=== PATIENT | male | born 1960 | race Caucasian/White ===

== ENCOUNTER → 2017-08-09 12:18 | Outpatient (CLI) | payer BC, SELFPAY ==
[2017-08-02 15:33] VITALS: BP 127/85; BMI 24.3
[2017-08-09 13:17] LABS: AST(SGOT) 18 U/L (15-37); Alanine Aminotransfer ALT/SGPT 33 U/L (16-61); Albumin, Serum 4.1 g/dL (3.2-5.0); Alkaline Phosphatase 115 U/L (45-117); Bilirubin, Direct 0.16 mg/dL (0.00-0.30); Cholesterol 143 mg/dL (200); Globulin 3.2 g/dL (2.2-4.2); High Density Lipoprotein 41 mg/dL; Protein, Total 7.3 g/dL (6.4-8.2); Triglycerides 159 mg/dL; Very Low Density Lipoprotein 32 mg/dL (5-40)
== END ==
PROVIDERS: Visit Provider Internal Medicine Cardiovascular Disease
DX: R06.09 Other forms of dyspnea (principal); E78.5 Hyperlipidemia, unspecified; I25.10 Atherosclerotic heart disease of native coronary artery without angina pectoris; Z95.2 Presence of prosthetic heart valve; Z79.01 Long term (current) use of anticoagulants; Z95.1 Presence of aortocoronary bypass graft; Z79.899 Other long term (current) drug therapy
CPT/HCPCS: 36415; 80061; 80076

== ENCOUNTER → 2020-09-28 06:39 | Outpatient (CLI) | payer MEDICAID, SELFPAY ==
[2020-09-14 13:10] VITALS: BMI 25.4
--- NOTE | 2020-09-28 06:41 | ECHOD_ITS ---
Version 2 Reason For Study: Bicuspid AV Procedure This was a 2D Doppler, Color Flow transthoracic echocardiogram. Exam performed in department. Left Ventricle Normal LV size. Left ventricular systolic function is normal. The estimated ejection fraction is 60 %. Stage 1 diastolic dysfunction. No regional wall motion abnormalities noted. Right Ventricle Normal RV size. Normal systolic function. Atria Normal left atrium. Normal right atrium. Mitral Valve Normal mitral valve. Tricuspid Valve Normal tricuspid valve. Aortic Valve The aortic valve is not well visualized. Peak aortic valve gradient 23 mmHg. Mean aortic valve gradient 12 mmHg. Mild aortic stenosis. Bioprosthetic aortic valve. Pulmonic Valve Normal pulmonic valve. Great Vessels Normal aortic root. The pulmonary artery is normal size. Normal inferior vena cava. Pericardium/Pleural No pericardial effusion. MMode/2D Measurements & Calculations LVIDd: 4.0 cm IVSd: 1.4 cm LVOT diam: 2.0 cm LVIDs: 2.4 cm LVPWd: 0.71 cm LVOT area: 3.1 cm2 FS: 39.2 % LA dimension: 3.1 cm LAV(MOD-bp): 37.3 ml LA A4 area: 12.6 cm2 LAV(MOD-bp) Indexed: 17.6 ml/m2 LAV(MOD-sp2): 44.9 ml LAV(MOD-sp4): 27.1 ml RA A4 area: 13.0 cm2 Time Measurements MV dec time: 0.31 sec Doppler Measurements & Calculations MV E max joselito: 70.0 cm/sec Lat Peak E' Joselito: 10.3 cm/sec Med Peak E' Joselito: 5.5 cm/sec MV A max joselito: 85.3 cm/sec E/E' lat: 6.8 E/E' med: 12.8 MV E/A: 0.82 MV V2 max: 81.1 cm/sec MV P1/2t max joselito: 74.6 cm/sec Ao V2 max: 244.0 cm/sec MV max P.6 mmHg MV P1/2t: 92.6 msec Ao max P.9 mmHg MV V2 mean: 43.1 cm/sec MV dec slope: 236.1 cm/sec2 Ao V2 mean: 157.3 cm/sec MV mean P.90 mmHg Ao mean P.6 mmHg MV V2 VTI: 24.4 cm MVA(P1/2t): 2.4 cm2 Ao V2 VTI: 52.0 cm MVA(VTI): 2.6 cm2 CHARITY(I,D): 1.2 cm2 CHARITY(V,D): 1.3 cm2 LV V1 max: 101.8 cm/sec SV(LVOT): 64.6 ml PA V2 max: 146.4 cm/sec LV V1 max P.2 mmHg LV V1 mean P.0 mmHg LV V1 mean: 63.9 cm/sec LV V1 VTI: 21.0 cm ECHO/Echo Complete Interpretation Summary Normal LV size. Left ventricular systolic function is normal. The estimated ejection fraction is 60 %. Stage 1 diastolic dysfunction. Mean aortic valve gradient 12 mmHg. Mild aortic stenosis. Bioprosthetic aortic valve. Ordering Physician: Radu Rivas Referring Physician: No PCP noted Performed By: Joseph Ortiz RCS
--- NOTE | 2020-09-28 17:32 | STRESSREP ---
Stress Test Report Exercise myocardial perfusion stress test. 60-year-old man with history of coronary artery disease and a bicuspid aortic valve. Stress protocol: Resting EKG demonstrates normal sinus rhythm with a rate of 65 bpm normal intervals are noted resting blood pressure is 120/82 mmHg. The patient exercised according to the regular Joshua protocol for a total duration of 11 minutes. Patient completed 2 minutes into stage IV of the Joshua protocol. The maximum heart rate attained 137 bpm which was 85% of max impacted heart rate the maximum workload was 13.4 metabolic equivalents. The patient maintained sinus rhythm throughout the recording. At rest there were no ST changes noted to suggest ischemia. At peak exercise upsloping ST changes only were noted which did not meet the criteria for ischemia. No clinical angina was noted. The test was terminated due to the target heart rate being achieved. The peak blood pressure was 160/68 mmHg. Myocardial perfusion protocol. 11.7 mCi of technetium 99m sestamibi was injected at rest. The patient exercised for a total duration of 11 minutes and at peak exercise 35.5 mCi of technetium 99m sestamibi was injected stress images were obtained stress and rest images were reconstructed and compared in the short axis vertical long and horizontal long axis. Gated images were also obtained. Perfusion SPECT analysis: Review of the stress images demonstrated normal uptake of tracer noted in all areas of the myocardium. The resting images similarly demonstrate normal uptake of tracer noted in all areas of the myocardium. No areas of reversibility are noted to suggest ischemia and no previous infarct is noted. Gated SPECT analysis: The gated ejection fraction is 55%. Conclusion: Normal exercise myocardial perfusion stress test at a high workload. Excellent functional aerobic capacity. No clinical angina.
== END ==
PROVIDERS: Referring Provider Internal Medicine Cardiovascular Disease; Visit Provider Internal Medicine Cardiovascular Disease
DX: I25.10 Atherosclerotic heart disease of native coronary artery without angina pectoris (principal); Z95.1 Presence of aortocoronary bypass graft; Z98.890 Other specified postprocedural states; Z95.3 Presence of xenogenic heart valve
CPT/HCPCS: 78452; 93017; 93306; A9500; A4216

== ENCOUNTER → 2020-10-07 10:04 | Outpatient (CLI) | payer MEDICAID, SELFPAY ==
[2020-09-14 13:10] VITALS: BMI 25.4
[2020-10-07 11:03] LABS: AST(SGOT) 36 U/L (15-37); Alanine Aminotransfer ALT/SGPT 69 U/L (16-61); Alkaline Phosphatase 122 U/L (45-117); Bilirubin, Direct 0.31 mg/dL (0.00-0.30); Cholesterol 127 mg/dL (200); Creatinine, Serum 1.17 mg/dL (0.70-1.30); EST Glomerular Filtration Rate 68 mL/min (>60); Est Glom Filt Rate - Afr Amer 82 mL/min (>60); Globulin 3.5 g/dL (2.2-4.2); High Density Lipoprotein 46 mg/dL; Protein, Total 7.5 g/dL (6.4-8.2); Triglycerides 106 mg/dL; Very Low Density Lipoprotein 21 mg/dL (5-40)
== END ==
PROVIDERS: Internal Medicine Cardiovascular Disease; Referring Provider Otolaryngology; Visit Provider Otolaryngology
DX: R43.9 Unspecified disturbances of smell and taste (principal); E78.5 Hyperlipidemia, unspecified
CPT/HCPCS: 80061; 80076; 82565

== ENCOUNTER → 2020-10-21 17:01 | Outpatient (CLI) | payer MEDICAID, SELFPAY ==
[2020-09-14 13:10] VITALS: BMI 25.4
--- NOTE | 2020-10-21 17:03 | MRI_ITS ---
STUDY: MRI BRAIN WITH AND WITHOUT CONTRAST REASON FOR EXAM: Male, 60 years old. LOSS OF TASTE AND SMELL x 1 year TECHNIQUE: Standardized multiplanar fat and water weighted pulse sequences were obtained. IV Yes YES was administered for the contrast portion of the examination. COMPARISON: None. FINDINGS: Normal size of the ventricles and extra-axial spaces for the patient''s age. Normal white matter tracts of the supratentorial brain. 9 mm benign nonenhancing cyst in the left temporal lobe. Normal bilateral basal ganglia. Normal thalami. There is no extra-axial fluid accumulation. Normal flow voids within the major intracranial circulation suggesting patency by spin echo criteria. Normal venous enhancement. There is no enhancing intra-axial or extra-axial abnormality. Normal sella turcica, pituitary gland, infundibular stalk, optic chiasm and hypothalamus. Normal tectal plate and pineal gland. Normal midbrain, loco and medulla. Normal cerebellum. Normal basal cisterns. Normal bilateral temporal bones. Normal bilateral internal auditory canals. No demonstrated orbital abnormality, within the constraints of a routine brain study. Normal visualized paranasal sinuses. Normal calvarium and skull base. Normal visualized soft tissue structures. Normal visualized upper cervical spine. MRI/Brain W/WO Contrast IMPRESSION: 9 mm benign nonenhancing cyst in the left temporal lobe otherwise negative MRI of the brain with and without contrast. Electronically Signed: Remy Castrejon MD at 10:24 EDT , Service support ,
--- NOTE | 2020-10-21 17:27 | RAD_ITS ---
STUDY: X-RAY - ORBITS REASON FOR EXAM: Male, 60 years old. FOREIGN BODY MRI CLEARANCE TECHNIQUE: 2 view(s) of the orbits were obtained. COMPARISON: None. FINDINGS: Normal bilateral orbits without a metallic orbital foreign body. Normal visualized facial bones. Normal paranasal sinuses. The soft tissue structures are unremarkable. Dental caps noted. RAD/Orbits for Foreign Body IMPRESSION: No demonstrated metallic orbital foreign body. The patient is cleared for an MRI examination. Electronically Signed: Raymond Woods MD at 18:14 EDT , Service support ,
== END ==
PROVIDERS: Referring Provider Otolaryngology; Visit Provider Otolaryngology
DX: R43.9 Unspecified disturbances of smell and taste (principal)
CPT/HCPCS: 70030; 70553; A9575

== ENCOUNTER → 2021-01-11 16:53 | Outpatient (CLI) | payer MEDICAID, SELFPAY ==
[2020-11-22 08:54] VITALS: BMI 26.2
--- NOTE | 2021-01-11 16:57 | CT_ITS ---
STUDY: CT PARANASAL SINUSES WITH CONTRAST REASON FOR EXAM: Male, 60 years old. Anosmia RADIATION DOSAGE (If Supplied By Facility): CTDIvol = ( 29.38 ) mGy, DLP = ( 598.88 ) mGycm TECHNIQUE: The patient was scanned in a multi-detector CT scanner. High resolution transaxial imaging was performed following the intravenous administration of IV 75mL Isovue-370. Sagittal and coronal images were reconstructed. Individualized dose optimization techniques were used for this CT. COMPARISON: None. FINDINGS: FRONTAL SINUSES: Normal development and aeration of the bilateral frontal sinuses without mucosal inflammatory disease. ETHMOIDAL SINUSES: Minimal mucosal thickening of the ethmoid sinuses. MAXILLARY SINUSES: There is evidence of a nodular mucosal thickening at the bases of both maxillary sinuses. SPHENOIDAL SINUSES: Normal aeration of the bilateral sphenoid sinuses and there is no mucosal inflammatory disease. OMU: Normal aeration of the bilateral maxillary infundibulum. Normal uncinate process, ethmoid bulla, and hiatus semilunaris. MIDDLE TURBINATES: Normal bilateral middle turbinates without a gavin bullosa or paradoxical curvature. INFERIOR TURBINATES: There is hypertrophy of the right inferior turbinate. NASAL SEPTUM: Normal midline nasal septum and there is no nasal septal mass lesions, deviation or spur. Normal anterior cranial fossa, jonathan moo and cribriform plate. Normal bilateral orbital contents. Normal nasopharynx without adenoidal pad hypertrophy, or a posterior nasopharyngeal retention cyst. There is no demonstrated enhancing soft tissue or osseous abnormality. CT/Sinus/Facial Bone WITH Contras IMPRESSION: Nodular mucosal thickening of the maxillary sinuses bilaterally. Mild degree of mucosal thickening of the ethmoid sinuses. Electronically Signed: Ramon Zambrano MD at 9:07 EDT , Service support ,
[2021-01-11 17:16] LABS: CREATININE FINGERSTICK 1.1 mg/dL (0.70-1.30); EGFR FINGERSTICK > 60.0000 mL/min (>60)
== END ==
PROVIDERS: Referring Provider Psychiatry & Neurology Neurology; Visit Provider Psychiatry & Neurology Neurology
DX: R43.0 Anosmia (principal)
CPT/HCPCS: 70487; Q9967

== ENCOUNTER → 2021-01-26 14:12 | Outpatient (CLI) | payer MEDICAID, SELFPAY ==
[2020-11-22 08:54] VITALS: BMI 26.2
[2021-01-26 14:58] LABS: Hematocrit 44.6 % (40-54); Hemoglobin 15.5 g/dL (13.0-16.5); Mean Corp Hgb Conc 34.8 g/dL (32-36); Mean Corpuscular Hgb 33.7 pg (27.0-32.0); Mean Platelet Vol. 9.4 fl (6.2-12.0); Platelet Count 157 K/mm3 (150-450); RBC Distribution Width CV 12.3 % (11.6-14.6); RBC Distribution Width SD 44.2 fl (35.1-43.9); White Blood Count 6.1 K/mm3 (4.4-11.0)
[2021-01-26 15:00] LABS: Erythrocyte Sedimentation Rate < 1 mm/hr (0-20)
[2021-01-26 15:34] LABS: Hemoglobin A1c 5.7 % (3.8-5.6)
[2021-01-26 15:55] LABS: Anion Gap 7 (5-15); BUN 15 mg/dL (7-18); CRP < 2.90 mg/L (0.0-3.0); Calcium,Total 8.9 mg/dL (8.5-10.1); Chloride 105 mmol/L (98-107); EST Glomerular Filtration Rate 81 mL/min (>60); Est Glom Filt Rate - Afr Amer 98 mL/min (>60); Glucose 96 mg/dL (74-106); Sodium Level 141 mmol/L (136-145); Thyroid Stim Hormone (TSH) 1.53 uIU/mL (0.358-3.74)
== END ==
PROVIDERS: Referring Provider Psychiatry & Neurology Neurology; Visit Provider Psychiatry & Neurology Neurology
DX: R43.0 Anosmia (principal)
CPT/HCPCS: 36415; 80048; 83036; 84443; 85027; 85652; 86140

== ENCOUNTER → 2021-03-29 16:46 | Outpatient (CLI) | payer MEDICAID, SELFPAY ==
[2021-03-29 17:49] LABS: Vitamin B12 467 pg/mL (211-911)
== END ==
PROVIDERS: Visit Provider Psychiatry & Neurology Neurology
DX: R43.0 Anosmia (principal); G62.9 Polyneuropathy, unspecified
CPT/HCPCS: 36415; 82607; 82746

== ENCOUNTER 2021-10-12 14:05 | Outpatient (CLI) | payer MEDICAID, SELFPAY ==
[2021-10-12 14:38] LABS: AST(SGOT) 32 U/L (15-37); Alanine Aminotransfer ALT/SGPT 85 U/L (16-61); Albumin, Serum 3.8 g/dL (3.2-5.0); Alkaline Phosphatase 124 U/L (45-117); Bilirubin, Direct 0.18 mg/dL (0.00-0.30); Cholesterol 163 mg/dL (200); Globulin 3.4 g/dL (2.2-4.2); High Density Lipoprotein 42 mg/dL; Protein, Total 7.2 g/dL (6.4-8.2); Triglycerides 189 mg/dL; Very Low Density Lipoprotein 38 mg/dL (5-40)
== END 2021-10-12 23:59 | disposition home or self-care (01) ==
LOC: LAB 14:06
PROVIDERS: Referring Provider Nurse Practitioner Family; Visit Provider Nurse Practitioner Family
DX: E78.00 Pure hypercholesterolemia, unspecified (principal); E78.5 Hyperlipidemia, unspecified
CPT/HCPCS: 36415; 80061; 80076

== ENCOUNTER → 2022-05-07 | Outpatient (CLI) | payer MEDICAID, SELFPAY ==
[2022-05-07 15:28] LABS: Hemoglobin 16.9 g/dL (13.0-16.5); Mean Corp Hgb Conc 35.2 g/dL (32-36); Mean Corpuscular Hgb 34.3 pg (27.0-32.0); Mean Corpuscular Volume 97.6 fL (80-94); Mean Platelet Vol. 9.6 fl (6.2-12.0); Platelet Count 147 K/mm3 (150-450); RBC Distribution Width CV 12.9 % (11.6-14.6); RBC Distribution Width SD 46.4 fl (35.1-43.9); Red Blood Count 4.92 M/mm3 (4.6-6.2); White Blood Count 6.3 K/mm3 (4.4-11.0)
[2022-05-07 15:43] LABS: ALB/GLOB Ratio 1.1 RATIO (0.9-2.4); AST(SGOT) 46 U/L (15-37); Alanine Aminotransfer ALT/SGPT 100 U/L (16-61); Albumin, Serum 3.9 g/dL (3.2-5.0); Alkaline Phosphatase 105 U/L (45-117); Anion Gap 6 (5-15); BUN 18 mg/dL (7-18); BUN/Creat Ratio 16.1 RATIO (10-20); Calcium,Total 9.4 mg/dL (8.5-10.1); Chloride 106 mmol/L (98-107); Creatinine, Serum 1.12 mg/dL (0.70-1.30); EST Glomerular Filtration Rate 71 mL/min (>60); Est Glom Filt Rate - Afr Amer 86 mL/min (>60); Globulin 3.4 g/dL (2.2-4.2); Glucose 90 mg/dL (74-106); Potassium 3.4 mmol/L (3.5-5.1); Protein, Total 7.3 g/dL (6.4-8.2); Sodium Level 140 mmol/L (136-145)
== END | disposition home or self-care (01) ==
PROVIDERS: Referring Provider Physician Assistant; Visit Provider Physician Assistant
DX: U07.1 COVID-19 (principal)
CPT/HCPCS: 36415; 80053; 85027

== ENCOUNTER 2022-07-18 14:38 | Emergency (ER) | payer MEDICAID, SELFPAY ==
[2022-07-18 14:39] VITALS: BP 143/104; PULSE 89; RESP 16; TEMP 36.6; O2SAT 95; BMI 25.0
--- NOTE | 2022-07-18 14:57 | EKG12_ITS ---
Test Reason : CP Blood Pressure : / mmHG Vent. Rate : 069 BPM Atrial Rate : 069 BPM P-R Int : 164 ms QRS Dur : 096 ms QT Int : 384 ms P-R-T Axes : 026 059 072 degrees QTc Int : 411 ms Normal sinus rhythm Normal ECG Confirmed by JAIRON THOMAS, ANNALISA ([id number]), editor managing director NORIS BARRIENTOS ([id number]) on 07/19/2022 1:39:07 PM Referred By: FILIBERTO Confirmed By:NINA DE LA O MD
--- NOTE | 2022-07-18 14:58 | ED.VIS.BACK ---
HPI History of Present Illness Chief Complaint: Shortness of Breath Narrative Narrative: 62-year-old male past medical history of spondylolysis and lumbar radiculopathy, coronary artery disease with remote quadruple bypass, hyperlipidemia, presents with thoracic back pain radiating to the left side for approximately 1 week. He states he has been to urgent care and they put him on prednisone and Flexeril, thinking that it was mid back pain related to musculoskeletal issues. He returned to urgent care today and they sent him to the emergency department because they saw how serious the pain was. He states has had past history of pleurisy which was relieved with ibuprofen, but over the last week he has been taking that and it has not been relieved. He states it sometimes hurts when he breathes. What makes it better as if he sleeps on his left side, he states the pain goes away. He denies other symptoms, no fever or chills. No cough. No nausea or vomiting. No diaphoresis. No leg swelling. No DVT or PE risk factors. [facility] Medical History (Updated 07/18/22 @ 17:30 by Remy Pulido MD) Aortic stenosis with bicuspid valve Atherosclerotic heart disease of [place] coronary artery without angina pectoris COVID-19 (09/2019) Gout Hyperlipidemia Home Medications multivitamin (Daily Multi-Vitamin tablet) 1 tab PO DAILY 09/14/20 [History Last Taken Unknown] colchicine 0.6 mg capsule 0.6 mg PO BID PRN 11/22/20 [History Last Taken Unknown] aspirin 81 mg tablet,delayed release 81 mg PO DAILY 09/12/21 [History Last Taken Unknown] atorvastatin 80 mg tablet 80 mg PO QHS #90 tabs 09/12/21 [Rx Last Taken Unknown] magnesium oxide 400 mg (241.3 mg magnesium) tablet 400 mg PO DAILY 09/12/21 [History Last Taken Unknown] pantoprazole 40 mg tablet,delayed release 40 mg PO DAILY #90 tabs 09/15/21 [Rx Last Taken Unknown] amlodipine 10 mg tablet 10 mg PO DAILY #90 tabs 10/10/21 [Rx Last Taken Unknown] metoprolol succinate 25 mg tablet,extended release 24 hr (Toprol XL) 25 mg PO DAILY #90 tabs 10/10/21 [Rx Last Taken Unknown] hydrochlorothiazide 25 mg tablet 25 mg PO DAILY #30 tabs 04/19/22 [Rx Last Taken Unknown] duloxetine 60 mg capsule,delayed release 60 mg PO DAILY #30 caps 02/01/22 [Rx Last Taken Unknown] flurbiprofen 100 mg tablet 100 mg PO TID PRN pain #90 tabs 02/01/22 [Rx Last Taken Unknown] potassium chloride 10 mEq tablet,extended release(part/cryst) 10 meq PO QHS #30 tabs 02/01/22 [Rx Last Taken Unknown] cyclobenzaprine 10 mg tablet 10 mg PO TID PRN muscle spasm 5 days #20 tabs 07/16/22 [Rx Last Taken Unknown] methylprednisolone 4 mg tablets in a dose pack (Medrol (Toribio)) 4 mg PO PER PKG DIR 6 days #21 tabs 07/16/22 [Rx Last Taken Unknown] Allergy/AdvReac Type Severity Reaction Status Date / Time oxycodone [From Percocet] AdvReac Unknown Unknown Verified 07/18/22 14:42 Family History Mother Sudden cardiac CVA (cerebral vascular accident) Father CAD (coronary artery disease) Sudden cardiac Brother Diabetes Myocardial infarction Surgical History H/O coronary artery bypass surgery (04/05/17) History of aortic valve replacement with bioprosthetic valve (04/05/17) Social History Smoking Status: Current some day smoker tobacco type: cigars per week: 5 Tobacco: How many years used: 30 how long ago did patient quit smokin04/04/2017 alcohol intake: current alcohol intake frequency: a few times a week Alcohol type: beer substance use type: does not use what type of physical activity do you participate in: other details: cardiac rehab frequency: 3-4 times per week duration: 15-30 minutes/day seatbelt use: always do you feel safe at home: Yes ROS ROS ED ROS Narrative Constitutional: No fever, no chills. HEENT: No sore throat. No neck pain. No loss of vision. No rhinorrhea. Cardiovascular: No chest pain. No palpitations. No pedal edema. Respiratory: No cough, no shortness of breath. Abdominal: No abdominal pain. No nausea. No vomiting. Genitourinary: No dysuria. No hematuria. Musculoskeletal: No myalgias. No arthralgias. Positive for thoracic back pain radiating to left side. Neurologic: No headaches. No dizziness. No lightheadedness. Skin: No rash. No change in color. Psychiatric: No depression. No anxiety. EXAM Physical Exam Narrative Exam Narrative: Afebrile. Vital signs noted. HEENT: Normocephalic. Atraumatic. PERRL, EOMI. Neck soft and supple. No point tenderness or step off. Cardiovascular: Regular rate and rhythm. No murmurs, rubs, or gallops appreciated. Respiratory: No tachypnea. Lungs clear to auscultation bilaterally. Gastrointestinal: Abdomen soft, nontender, with normoactive bowel sounds. No rebound or guarding. Neurological: Awake. Alert. Nonfocal, nonlateralizing. Skin: No rash. Normal color. No pallor. Musculoskeletal: No pedal edema. Full range of motion extremities. Mild tenderness to palpation around T6 or T7 paraspinal musculature. Area of pain radiates to lateral ribs at that level. No palpable crepitance. Const Vital Signs: 07/18/22 14:39 07/18/22 15:16 07/18/22 15:17 Temperature 97.8 F Temperature Source Temporal Pulse Rate 89 Respiratory Rate 16 Respiratory Effort Short of Breath Blood Pressure 143/104 H Blood Pressure Mean 117 Pulse Ox 95 98 Oxygen Delivery Method Room Air Room Air Room Air 07/18/22 16:20 07/18/22 17:00 Temperature Temperature Source Pulse Rate 80 73 Respiratory Rate 20 H 24 H Respiratory Effort Blood Pressure 139/93 H Blood Pressure Mean 108 Pulse Ox 98 98 Oxygen Delivery Method Room Air Room Air MDM MDM MDM Narrative Medical decision making narrative: In the differential diagnosis is thoracic radiculopathy given his history of lumbar radiculopathy, spinal stenosis, pulmonary embolism, acute coronary syndrome. I feel that PE is less likely given that he has lower risk factors, but although he has history of coronary artery disease, his pain does not sound like cardiac pain. Comprehensive work-up was pursued. EKG was obtained and interpreted by myself. It demonstrates normal sinus rhythm at 69 bpm without ectopy or acute ST changes. No STEMI. I will obtain CBC, BMP, high-sensitivity troponin, and D-dimer. Chest x-ray will also be obtained in 1 view to look for pneumonia versus pneumothorax. I reviewed his laboratory work. He has slightly elevated white count of 13.8 which I think is nonspecific, hemoglobin normal at 16.2, hematocrit 45.9. Platelet count normal at 183. D-dimer is normal at 0.30, making pulmonary embolism less likely. Electrolyte panel shows chloride slightly elevated at 108, BUN of 23 with a normal creatinine of 1.2, glucose appropriately elevated at 163 with a normal anion gap of 6. High-sensitivity troponin is 5. His pain is been ongoing for greater than 6 hours. I do not feel that delta troponin is indicated. I reviewed his chest x-ray and interpreted it. I see no evidence of pneumonia or pneumothorax. At this point in time, I feel he can be discharged safely home with follow-up to her primary care provider. He will continue his steroid taper and muscle relaxers. Given that he has lumbar radicular pain, I do feel that this may be more thoracic radiculopathy. Disposition is discharged in stable condition. . Lab Data Attestation: I reviewed the patient's lab results. Labs: Laboratory Results - last 24 hr 07/18/22 07/18/22 07/18/22 15:05 15:05 15:05 WBC 13.8 H RBC 4.75 Hgb 16.2 Hct 45.9 MCV 96.6 H MCH 34.1 H MCHC 35.3 RDW Std Deviation 44.8 H RDW Coeff of Bunny 12.4 Plt Count 183 MPV 9.2 Immature Gran % (Auto) 0.700 Neut % (Auto) 82.6 H Lymph % (Auto) 11.3 L Parker % (Auto) 5.1 Eos % (Auto) 0.1 Baso % (Auto) 0.2 Absolute Neuts (auto) 11.4 H Absolute Lymphs (auto) 1.56 Nucleated RBC % 0 D-Dimer Quant (PE/DVT) 0.30 Sodium 139 Potassium 4.4 Chloride 108 H Carbon Dioxide 25.0 Anion Gap 6 BUN 23 H Creatinine 1.23 Estim Creat Clear Calc 70.37 Est GFR (MDRD) Af Amer 77 Est GFR (MDRD) Non-Af 63 BUN/Creatinine Ratio 18.7 Glucose 163 H Calcium 9.6 Troponin I High Sens 5 Radiography Diagnostic Testing: Clinical Impression(s) from Imaging Studies Chest X-Ray 07/18/22 15:17 IMPRESSION: Hyperinflation. The lungs are clear. Electronically Signed: Ramon Zambrano MD at 15:33 EST , Discharge Plan Triage Chief Complaint: Shortness of Breath Other Complaint: Back ED Provider: Remy Pulido Dx/Rx/DC Orders Clinical Impression: Left-sided thoracic back pain, Radicular pain of thoracic region Instructions: ED Back Pain (Acute or Chronic), ED Chest Pain, Uncertain Cause Prescriptions: No Action multivitamin [Daily Multi-Vitamin] Tablet 1 tab PO DAILY aspirin 81 mg tablet,delayed release (DR/EC) 81 mg PO DAILY Rx Instructions: Only if he does not take excedrin that day magnesium oxide 400 mg (241.3 mg magnesium) tablet 400 mg PO DAILY atorvastatin 80 mg tablet 80 mg PO QHS Qty: 90 4RF colchicine 0.6 mg capsule 0.6 mg PO BID PRN Label Comments: TAKE 1 CAPSULE BY MOUTH TWICE A DAY FOR 10 DAYS UNTIL GOUT FLARE RESOLVES potassium chloride 10 mEq tablet,ER particles/crystals 10 meq PO QHS Qty: 30 5RF flurbiprofen 100 mg tablet 100 mg PO TID PRN (Reason: pain) Qty: 90 3RF duloxetine 60 mg capsule,delayed release(DR/EC) 60 mg PO DAILY Qty: 30 6RF cyclobenzaprine 10 mg tablet 10 mg PO TID PRN (Reason: muscle spasm) 5 Days Qty: 20 0RF methylprednisolone [Medrol (Toribio)] 4 mg tablets,dose pack 4 mg PO PER PKG DIR 6 Days Qty: 21 0RF pantoprazole 40 mg tablet,delayed release (DR/EC) 40 mg PO DAILY Qty: 90 3RF amlodipine 10 mg tablet 10 mg PO DAILY Qty: 90 3RF metoprolol succinate [Toprol XL] 25 mg tablet extended release 24 hr 25 mg PO DAILY Qty: 90 3RF hydrochlorothiazide 25 mg tablet 25 mg PO DAILY Qty: 30 11RF Primary Care Provider: Care Physician,No Primary Referrals: Care Physician,No Primary [Primary Care Provider] - Activity Restrictions/Additional Instructions: Continue your medications as previously instructed. Call care source to see who your primary care physician should be. Return with increased pain, new or worsening symptoms. Disposition Disposition: Home, Self Care
[2022-07-18] MEDS: 0.9% Normal Saline 1,000 ML 1000 ML IV (15:12)
[2022-07-18] MEDS: Aspirin 81 MG TAB.CHEW 324 MG PO (15:13)
[2022-07-18 15:15] LABS: Absolute Lymphocyte Count 1.56 X10^3/uL (0.83-4.51); Absolute Neutrophil Count 11.4 X10^3/uL (2.0-7.7); Basophil# 0.03 X10^3/uL; Basophil% 0.2 % (0-1); Eosinophil# 0.02 X10^3/uL; Eosinophils% 0.1 % (0-5); Hematocrit 45.9 % (40-54); Hemoglobin 16.2 g/dL (13.0-16.5); Lymphocyte # 1.56 X10^3/ul (0.83-4.51); Lymphocyte % 11.3 % (19-41); Mean Corp Hgb Conc 35.3 g/dL (32-36); Mean Corpuscular Hgb 34.1 pg (27.0-32.0); Mean Corpuscular Volume 96.6 fL (80-94); Mean Platelet Vol. 9.2 fl (6.2-12.0); Monocyte% 5.1 % (0-10); NRBC Flagged by Analyzer 0 % (0-5); Neutrophil # 11.42 X10^3/uL (2.7-7.7); Neutrophil % 82.6 % (47-70); Platelet Count 183 K/mm3 (150-450); RBC Distribution Width CV 12.4 % (11.6-14.6); RBC Distribution Width SD 44.8 fl (35.1-43.9); Red Blood Count 4.75 M/mm3 (4.6-6.2); White Blood Count 13.8 K/mm3 (4.4-11.0)
[2022-07-18 15:17] VITALS: O2SAT 98
--- NOTE | 2022-07-18 15:17 | RAD_ITS ---
STUDY: X-RAY CHEST REASON FOR EXAM: Male, 62 years old. Left-sided back pain and chest pain. Dyspnea. TECHNIQUE: Single AP portable view of the chest. COMPARISON: Comparison is made with prior examination of 06/07/2017. FINDINGS: EKG electrodes are seen. Hyperinflation. The lungs are clear. There is no demonstrated pleural abnormality. Sternal cerclage wires are present from a prior sternotomy. Normal mediastinum and zee. Normal visualized pulmonary arteries. There is atherosclerotic calcification of the aortic arch with tortuosity. Normal visualized thoracic spine. Normal visualized ribs, clavicles, and shoulders. There is no demonstrated abnormality of the visualized soft tissue structures of the upper abdomen. RAD/Chest 1 View (Portable) IMPRESSION: Hyperinflation. The lungs are clear. Electronically Signed: Ramon Zambrano MD at 15:33 EST ,
[2022-07-18 15:49] LABS: Anion Gap 6 (5-15); BUN 23 mg/dL (7-18); BUN/Creat Ratio 18.7 RATIO (10-20); Calcium,Total 9.6 mg/dL (8.5-10.1); Chloride 108 mmol/L (98-107); Creatinine, Serum 1.23 mg/dL (0.70-1.30); EST Glomerular Filtration Rate 63 mL/min (>60); Est Glom Filt Rate - Afr Amer 77 mL/min (>60); Estimated Creatinine Clearance 70.37 ml/min; Glucose 163 mg/dL (74-106); Potassium 4.4 mmol/L (3.5-5.1); Sodium Level 139 mmol/L (136-145); Troponin-I HS (w/2H Reflex) 5 pg/mL (3.0-78.0)
[2022-07-18 16:20] VITALS: PULSE 80; RESP 20; O2SAT 98
[2022-07-18 17:00] VITALS: BP 139/93; PULSE 73; RESP 24; O2SAT 98
[2022-07-18 17:12] LABS: Reflex Troponin-HS? (from REC) Y
== END 2022-07-18 18:06 | disposition home or self-care (01) ==
PROVIDERS: Emergency Provider Emergency Medicine; Visit Provider Emergency Medicine
DX: M54.6 Pain in thoracic spine (principal); Z87.891 Personal history of nicotine dependence; R06.02 Shortness of breath; M54.16 Radiculopathy, lumbar region; I25.10 Atherosclerotic heart disease of native coronary artery without angina pectoris; M54.14 Radiculopathy, thoracic region; E78.5 Hyperlipidemia, unspecified
CPT/HCPCS: 71045; 80048; 84484; 85025; 85379; 93005; 99285; J7030; A4216

== ENCOUNTER → 2023-11-08 | Outpatient (CLI) | payer OTHER, SELFPAY | END | disposition home or self-care (01) | LOC: LABSPEC 17:43 | PROVIDERS: Visit Provider Physician Assistant | DX: N39.0 Urinary tract infection, site not specified (principal) | CPT/HCPCS: 87086; 87088; 87186 ==

== ENCOUNTER 2024-09-17 19:00 | Emergency (ER) | payer OTHER, SELFPAY ==
[2024-09-17 19:02] VITALS: BP 167/105; PULSE 70; RESP 16; TEMP 36.8; O2SAT 99; BMI 26.4
[2024-09-17 19:19] VITALS: O2SAT 98
--- NOTE | 2024-09-17 19:28 | ED.RN ---
Pt reports precordial pain that is reproducible when laying on left chest, but denies any other chest pain.
--- NOTE | 2024-09-17 19:37 | EKG12_ITS ---
Test Reason : AARYTHMIA Blood Pressure : */* mmHG Vent. Rate : 63 BPM Atrial Rate : 63 BPM P-R Int : 168 ms QRS Dur : 86 ms QT Int : 428 ms P-R-T Axes : -8 33 94 degrees QTcB Int : 437 ms Normal sinus rhythm Cannot rule out Inferior infarct , age undetermined Abnormal ECG Confirmed by QUIANA THOMAS, ARASH ([id number]), art editor TONO JACKSON ([id number]) on 09/18/2024 8:06:27 AM Referred By: Sal Strickland Confirmed By: ARASH ARAYA MD
[2024-09-17 19:56] LABS: Absolute Lymphocyte Count 2.18 X10^3/uL (0.83-4.51); Absolute Neutrophil Count 3.7 X10^3/uL (2.0-7.7); Basophil# 0.06 X10^3/uL; Basophil% 0.9 % (0-1); Eosinophil# 0.33 X10^3/uL; Eosinophils% 4.8 % (0-5); Hematocrit 41.7 % (40-54); Hemoglobin 14.9 g/dL (13.0-16.5); Lymphocyte # 2.18 X10^3/ul (0.83-4.51); Lymphocyte % 31.7 % (19-41); Mean Corp Hgb Conc 35.7 g/dL (32-36); Mean Corpuscular Hgb 34.5 pg (27.0-32.0); Mean Corpuscular Volume 96.5 fL (80-94); Mean Platelet Vol. 9.6 fl (6.2-12.0); Monocyte# 0.56 X10^3/uL; Monocyte% 8.1 % (0-10); NRBC Flagged by Analyzer 0 % (0-5); Neutrophil # 3.73 X10^3/uL (2.7-7.7); Neutrophil % 54.2 % (47-70); Platelet Count 132 K/mm3 (150-450); RBC Distribution Width CV 12.7 % (11.6-14.6); RBC Distribution Width SD 45.2 fl (35.1-43.9); Red Blood Count 4.32 M/mm3 (4.6-6.2); White Blood Count 6.9 K/mm3 (4.4-11.0)
[2024-09-17 20:00] VITALS: BP 157/87; PULSE 68; RESP 18; O2SAT 97
[2024-09-17 20:24] LABS: Troponin T High Sensitivity 16 ng/L (<=22)
[2024-09-17 20:36] LABS: Anion Gap 10 (5-15); BUN 19 mg/dL (4-19); BUN/Creat Ratio 16.6 RATIO (10-20); Calcium,Total 9.4 mg/dL (7.6-11.0); Carbon Dioxide 25.6 mmol/L (21.0-32.0); Chloride 105 mmol/L (98-108); Creatinine, Serum 1.12 mg/dL (0.70-1.20); EST Glomerular Filtration Rate 73 (>60); Glucose 113 mg/dL (70-99); Potassium 4.4 mmol/L (3.3-5.1); Sodium Level 141 mmol/L (133-145)
[2024-09-17 21:00] VITALS: BP 151/85; PULSE 64; RESP 20; O2SAT 97
--- NOTE | 2024-09-17 21:09 | EX.ED.DYSGE1 ---
HPI History of Present Illness Chief Complaint: Shortness of Breath Detail of Chief Complaint: Dyspnea on exertion for 1 to 2 months Informant: patient and spouse/S.O. Onset/Context/Timing Onset: Month(s) Context: Sudden Onset Timing: Intermittent Quality: Patient becomes short of breath going up and down multiple flights of steps Location: Going up or down inclines in succession Current Severity: Gone Maximum Severity: Moderate Worsened by: Activity going up and down steps and carrying heavy flower pots etc. Relieved by: alleviated after 3 minutes of rest. Associated Symptoms Associated Symptoms: Patient has no other symptoms and specifically no chest discomfort. Narrative Narrative: Patient is 64-year-old male. Known history of coronary disease status post quadruple bypass by Dr. Osmany Villagran at [facility]. He presents because of dyspnea. He has dyspnea on exertion going up and down multiple steps. He had dyspnea carrying flowerpots and doing gardening yesterday with his . This been going on for 1 approximately 2 to 3 months. He has no chest discomfort. He denies nausea vomiting, diaphoresis or discomfort in his jaw shoulders arms etc. He denies abdominal pain, nausea, vomit or diarrhea. [place] black or maroon-colored stool. Prior similar symptoms: No Recent Illness/Hospitalization: No [facility] Medical History Erectile dysfunction Stroke-like symptoms Vertebral artery stenosis Essential hypertension Strain of lumbar region Gout COVID-19 (09/2019) Aortic stenosis with bicuspid valve Hyperlipidemia Atherosclerotic heart disease of [place] coronary artery without angina pectoris Home Medications ?Medication ?Instructions ?Recorded ?Last Taken ?Type aspirin 81 mg tablet,delayed 81 mg PO DAILY 10/03/23 Unknown History release clopidogrel 75 mg tablet 75 mg PO QDAY #90 tabs 10/03/23 Unknown Rx duloxetine 20 mg capsule,delayed 20 mg PO QDAY 10/03/23 Unknown History release pantoprazole 40 mg tablet,delayed 40 mg PO DAILY #90 tabs 10/03/23 Unknown Rx release atorvastatin 80 mg tablet 80 mg PO QHS 12/19/23 Unknown History metoprolol succinate 25 mg 25 mg PO DAILY #90 tabs 12/19/23 Unknown Rx tablet,extended release 24 hr (Toprol XL) buspirone 5 mg tablet 5 mg PO TID PRN 09/17/24 Unknown History colchicine 0.6 mg tablet 0.6 mg PO BID 09/17/24 Unknown History cyclobenzaprine 10 mg tablet 10 mg PO TID PRN pain 09/17/24 Unknown History prednisone 20 mg tablet 20 mg PO DAILY 09/17/24 Unknown History sildenafil 100 mg tablet 100 mg PO DAILY PRN sexual activity 09/17/24 Unknown History Allergy/AdvReac Type Severity Reaction Status Date / Time acetaminophen (From Lorcet Allergy Mild CONFUSION Verified 09/17/24 19:05 (hydrocodone)) hydrocodone (From Lorcet Allergy Mild CONFUSION Verified 09/17/24 19:05 (hydrocodone)) oxycodone (From Percocet) AdvReac Severe Nausea Verified 09/17/24 19:04 Family History Mother Sudden cardiac CVA (cerebral vascular accident) Father CAD (coronary artery disease) Sudden cardiac Brother Diabetes Myocardial infarction Surgical History H/O removal of cyst H/O coronary artery bypass surgery (04/05/17) History of aortic valve replacement with bioprosthetic valve (04/05/17) Social History Smoking Status: Current every day smoker tobacco type: cigars per week: 5 Tobacco: How many years used: 30 how long ago did patient quit smokin04/04/2017 alcohol intake: current alcohol intake frequency: a few times a week Alcohol type: beer substance use type: does not use what type of physical activity do you participate in: other details: cardiac rehab frequency: 3-4 times per week duration: 15-30 minutes/day seatbelt use: always do you feel safe at home: Yes ROS ROS ED Constitutional Constitutional ED: Reports sweats; Denies chills, fever(s) or subjective ENT ENT ED: Denies rhinorrhea or sore throat Cardiovascular Cardiovascular: Denies chest pain, orthopnea, palpitations, paroxysmal nocturnal dyspnea or racing heartbeat Respiratory/Chest Respiratory/Chest: Reports dyspnea on exertion; Denies cough, dyspnea, orthopnea or paroxysmal nocturnal dyspnea Gastrointestinal Gastrointestinal: Denies abdominal pain, melena, nausea or vomiting Musculoskeletal Musculoskeletal: Denies back pain or neck pain Integumentary Denies rash EXAM Physical Exam Const Vital Signs: 09/17/24 19:02 09/17/24 19:19 09/17/24 19:27 Temperature 98.2 F Temperature Source Temporal Pulse Rate 70 Respiratory Rate 16 Respiratory Effort Normal Non-Labored Normal Non-Labored Respiratory Depth Normal Respiratory Pattern Normal Normal Blood Pressure 167/105 H Blood Pressure Mean 125 Pulse Ox 99 Oxygen Delivery Method Room Air Room Air 09/17/24 20:00 09/17/24 21:00 09/17/24 22:00 Temperature Temperature Source Pulse Rate 68 64 63 Respiratory Rate 18 20 H 20 H Respiratory Effort Respiratory Depth Respiratory Pattern Blood Pressure 157/87 H 151/85 H 165/99 H Blood Pressure Mean 110 107 121 Pulse Ox 97 97 98 Oxygen Delivery Method Room Air Room Air Room Air Positive well nourished and well developed General Appearance ED: well developed and NAD; Negative for pallor HEENT Reports moist mucous membranes HEENT Narrative: Head is atraumatic, cephalic. Ears normal. Nares patent. Eyes PERRL and EOMs intact bilaterally General Eye ED: Negative for pale conjunctiva or scleral icterus Neck no lymphadenopathy, supple and no JVD Chest Wall inspection of chest normal and palpation of chest normal Resp normal respiratory effort and clear to auscultation bilaterally Cardio regular rate, regular rhythm, S1 normal heart sound, S2 normal heart sound and no murmurs GI normal to inspection, nondistended, normoactive bowel sounds, non-tender, non-distended and no masses; Negative for hepatosplenomegaly GI Narrative: There is no palp pulsatile mass or abdominal bruit. Extremity normal to inspection Neuro oriented x3 and CN's II-XII intact bilaterally Sensorium / Orientation: alert Skin no rashes or lesions noted, no wounds and skin turgor normal General Skin Exam: elasticity normal; Negative for jaundice or pallor MDM MDM MDM Narrative Medical decision making narrative: With history coronary disease dyspnea exertion with activity alleviated with rest this may be anginal equivalent. Patient states he did not follow-up with his last cardiology appointment with Dr. Rivas. Symptoms not consistent with pneumonia, pneumothorax or pulmonary embolus. Will obtain appropriate blood work to assess for anemia which can cause dyspnea with activity, doubt fluid overload. Lab Data Attestation: I reviewed the patient's lab results. Lab results narrative: CBC is unremarkable. Electrolyte panel is unremarkable. Glucose slightly elevated 113. First troponin is 16. Second troponin is 16 which is normal with a delta of 0. Plan is discharged home to follow-up with Dr. Rivas for outpatient workup Labs: Laboratory Results - last 24 hr 09/17/24 09/17/24 19:25 21:56 WBC 6.9 RBC 4.32 L Hgb 14.9 Hct 41.7 MCV 96.5 H MCH 34.5 H MCHC 35.7 RDW Std Deviation 45.2 H RDW Coeff of Bunny 12.7 Plt Count 132 L MPV 9.6 Immature Gran % (Auto) 0.300 Neut % (Auto) 54.2 Lymph % (Auto) 31.7 [place] % (Auto) 8.1 Eos % (Auto) 4.8 Baso % (Auto) 0.9 Absolute Neuts (auto) 3.7 Absolute Lymphs (auto) 2.18 Nucleated RBC % 0 Sodium 141 Potassium 4.4 Chloride 105 Carbon Dioxide 25.6 Anion Gap 10 BUN 19 Creatinine 1.12 Estim Creat Clear Calc 75.30 Est GFR (MDRD) Non-Af 73 BUN/Creatinine Ratio 16.6 Glucose 113 H Calcium 9.4 Troponin T High Sens 16 Troponin T Hi Sens 2 Hr 16 EKG Initial EKG: Attestation: I personally reviewed and interpreted this EKG as follows: Interpretation: Sinus Rhythm (EKG was normal sinus rhythm rate of 63. NM interval is under 68 ms QRS duration is 86 ms QT duration 428 ms. [place] is normal. The computer is misinterpreting the inferior leads. There is no acute ischemic changes.) Comments: EKG from facility was reviewed. It is no different than the EKG that was obtained in the emergency department and when compared to EKG dated September 07, 2023 at [facility] there is no change in spite of what the patient claims he was told. 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 If troponins are normal he will be an outpatient workup.) Discharge Plan Triage Chief Complaint: Shortness of Breath ED Provider: Sal Strickland Dx/Rx/DC Orders Clinical Impression: BASHIR (dyspnea on exertion), Atherosclerotic heart disease of [place] coronary artery without angina pectoris, Essential hypertension, Hyperlipidemia, Anginal equivalent Instructions: ED Angina, Stable, ED Dyspnea Prescriptions: No Action aspirin 81 mg tablet,delayed release (DR/EC) 81 mg PO DAILY atorvastatin 80 mg tablet 80 mg PO QHS metoprolol succinate [Toprol XL] 25 mg tablet extended release 24 hr 25 mg PO DAILY Qty: 90 3RF duloxetine 20 mg capsule,delayed release(DR/EC) 20 mg PO QDAY clopidogrel 75 mg tablet 75 mg PO QDAY Qty: 90 3RF pantoprazole 40 mg tablet,delayed release (DR/EC) 40 mg PO DAILY Qty: 90 3RF buspirone 5 mg tablet 5 mg PO TID PRN cyclobenzaprine 10 mg tablet 10 mg PO TID PRN (Reason: pain) sildenafil 100 mg tablet 100 mg PO DAILY PRN (Reason: sexual activity) prednisone 20 mg tablet 20 mg PO DAILY colchicine 0.6 mg tablet 0.6 mg PO BID Primary Care Provider: Renee Menjivar Referrals: Radu Rivas MD [Med Staff - Active Staff] - 3-5 Days Renee Menjivar, PODIATRIC AIDE-C [Primary Care Provider] - Activity Restrictions/Additional Instructions: Call Dr. Rivas's office to be seen next week. If you become more short of breath or short of breath with less effort contact Dr. Rivas or return to the emergency department Print Language: Hong [place]er Disposition Disposition: Home, Self Care
--- NOTE | 2024-09-17 21:25 | CON.PCM.CA_ITS ---
Assessment & Plan Assessment/Plan (1) Chest pain: PLAN: He presents with chest discomfort which appears to be somewhat atypical and likely noncardiac. His cardiac enzymes thus far are negative. If his follow-up enzymes are normal I will suggest that he be discharged for outpatient follow-up in our office. (2) H/O coronary artery bypass surgery: PLAN: He is status post coronary bypass surgery. He can probably undergo an outpatient stress test at some point. (3) History of aortic valve replacement with bioprosthetic valve: PLAN: He is status post aortic valve replacement with a bioprosthetic valve. This to be evaluated with serial echocardiograms as deemed appropriate. (4) Hyperlipidemia: QUALIFIERS: Hyperlipidemia type: pure hypercholesterolemia Q ualified Code(s): E78.00 - Pure hypercholesterolemia, unspecified; E78.00 - Pure hypercholesterolemia, unspecified; E78.00 - Pure hypercholesterolemia, unspecified; E78.0 - Pure hypercholesterolemia PLAN: He will continue with risk factor modification for his hyperlipidemia for his coronary artery disease. (5) Essential hypertension: PLAN: His blood pressure appears to be under good control at this time and I would not recommend that we make any changes. Thank you for allowing me to participate in the care of your patient. Please don't hesitate to call if any issues arise. HPI Consult Data Date of Consult: 09/17/24 HPI Narrative HPI Narrative: DAWSON PABLO, is a 64 M who presents to the emergency room with some shortness of breath with exertion. He had gone to see his primary care provider and had complained of the same and an EKG was done which was thought to be mildly abnormal and so he was sent to the emergency room for evaluation. He denies any chest pain per se or paroxysmal nocturnal dyspnea or pedal edema. He does have a history of coronary artery disease bicuspid aortic valve status post four- vessel coronary bypass surgery with a left internal mammary artery to the left anterior descending artery, saphenous vein graft to diagonal branch, saphenous vein graft to obtuse marginal branch, and saphenous vein graft to right coronary artery. He also had an aortic valve replacement with a 23 mm bioprosthetic aortic valve. He was evaluated [facility] in August 2023 for strokelike symptoms of presyncope. He had a CTA that was concerning for severe stenosis versus occlusion of the nondominant right vertebral artery. He underwent an MRI that showed no stroke. His EEG was within normal limits. He was discharged with recommendation to follow-up with cardiology. He had an echocardiogram on 09/07/2023 that showed ejection fraction of 67% and a mean aortic valve gradient of 25 mmHg. Currently he is free of any symptoms and his EKG demonstrated sinus rhythm with no acute changes blood work is normal with a normal troponin. Cardiology was called to see him in the emergency room because it was thought that he was having an acute problem. [facility] Medical History Erectile dysfunction Stroke-like symptoms Vertebral artery stenosis Essential hypertension Strain of lumbar region Gout COVID-19 (09/2019) Aortic stenosis with bicuspid valve Hyperlipidemia Atherosclerotic heart disease of [place] coronary artery without angina pectoris Home Medications ?Medication ?Instructions ?Recorded ?Last Taken ?Type aspirin 81 mg tablet,delayed 81 mg PO DAILY 10/03/23 U nknown History release clopidogrel 75 mg tablet 75 mg PO QDAY #90 tabs 10/02 Unknown Rx duloxetine 20 mg capsule,delayed 20 mg PO QDAY 4 Unknown History release pantoprazole 40 mg tablet,delayed 40 mg PO DAILY #90 t abs 10/03/23 Unknown Rx release atorvastatin 80 mg tablet 80 mg PO QHS 12/19/23 Unknow n History metoprolol succinate 25 mg 25 mg PO DAILY #90 tabs Unknown Rx tablet,extended release 24 hr (Toprol XL) buspirone 5 mg tablet 5 mg PO TID PRN 09/17/24 Unk nown History colchicine 0.6 mg tablet 0.6 mg PO BID 09/17/24 Unkno wn History cyclobenzaprine 10 mg tablet 10 mg PO TID PRN pain Unknown History prednisone 20 mg tablet 20 mg PO DAILY 09/17/24 Unkn own History sildenafil 100 mg tablet 100 mg PO DAILY PRN sexual a ctivity 09/17/24 Unknown History Allergy/AdvReac Type Severity Reaction Status Date / Time acetaminophen (From Lorcet Allergy Mild CONFUSION Verified 09/17/24 19:05 (hydrocodone)) hydrocodone (From Lorcet Allergy Mild CONFUSION Verified 09/17/24 19:05 (hydrocodone)) oxycodone (From Percocet) AdvReac Severe Nausea Verified 09/17/24 19:04 Family History Mother Sudden cardiac CVA (cerebral vascular accident) Father CAD (coronary artery disease) Sudden cardiac Brother Diabetes Myocardial infarction Surgical History H/O removal of cyst H/O coronary artery bypass surgery (04/05/17) History of aortic valve replacement with bioprosthetic valve (04/05/17) Social History Smoking Status: Current every day smoker tobacco type: cigars per week: 5 Tobacco: How many years used: 30 how long ago did patient quit smokin04/04/2017 alcohol intake: current alcohol intake frequency: a few times a week Alcohol type: beer substance use type: does not use what type of physical activity do you participate in: other details: cardiac rehab frequency: 3-4 times per week duration: 15-30 minutes/day seatbelt use: always do you feel safe at home: Yes ROS Constitutional Constitutional: Denies fever(s) or weight loss Eyes Eyes: Reports systems reviewed and no addt'l complaints, except as documented ENT HEENT: Reports systems reviewed and no addt'l complaints, except as documented Cardiovascular Cardiovascular: Denies chest pain at rest, chest pain with activity, dyspnea at rest, dyspnea on exertion, edema, palpitations or paroxysmal nocturnal dyspnea Respiratory/Chest Respiratory/Chest: Denies dyspnea on exertion, productive cough, shortness of breath at rest or shortness of breath with exertion Gastrointestinal Gastrointestinal: Denies change in bowel habits, nausea, vomiting or weight changes Genitourinary Genitourinary: Denies difficulty urinating Musculoskeletal Musculoskeletal: Denies joint stiffness or muscle weakness Integumentary Integumentary: Denies lesions Neurologic Neurologic: Denies dizziness or syncope Psychiatric Psychiatric: Denies anxiety Endocrine Endocrinology: Denies excessive sweating or fatigue Hematologic/Lymphatic Hematologic/Lymphatic: Denies anemia Allergic/Immunologic Allergic/Immunologic: Denies seasonal rhinorrhea Physical Exam Const alert, oriented x3 and no apparent distress General Appearance: cooperative HEENT hearing grossly normal bilaterally Head and Scalp: atraumatic Eyes EOMs intact bilaterally Neck General: normal visual inspection Chest inspection of chest normal and palpation of chest normal Resp normal respiratory effort Auscultation: clear to auscultation bilaterally Cardio regular rate, regular rhythm, S1 normal heart sound and S2 normal heart sound Jugular Venous Distention: JVD Heart Sounds: murmur systolic II/ GI normal to inspection, nondistended, normoactive bowel sounds Extremity normal capillary refill and no pedal edema Peripheral Pulses: Yes pulses 2+ throughout and femoral pulses present Skin no rashes or lesions noted Neuro oriented x3 and CN's II-XII intact bilaterally Psych Appearance: grossly normal and appropriate Risk Stratification Risk Stratification Applicable: Yes Age >/= 65: No >/= 3 CAD Risk Factors (HTN, HLD, DM, family hx of CAD, or current smoker): Yes Aspirin Use in the Past 7 Days: Yes Severe Angina (>/= episodes in 24 hours): No EKG ST Changes >/= 0.5mm: No Positive Cardiac Marker: No MICHAEL Risk Stratification Score: 2 MICHAEL % Risk: 8% Risk Objective Data Vital Signs: Vital Signs Temp Pulse Resp BP Pulse Ox O2 Del Method 98.2 F 64 20 H 151/85 H 97 Room Air 09/17/24 19:02 09/17/24 21:00 09/17/24 21:00 09/17/24 21:00 09/17/24 21:00 09/17/24 21:00 Oxygen Delivery Method Room Air Weight: 200 lb Body Mass Index (BMI) 26.4 Lab / Micro Data 09/17/24 19:25 09/17/24 19:25 Labs: Laboratory Results - last 24 hr 09/17/24 19:25: WBC 6.9, RBC 4.32 L, Hgb 14.9, Hct 41.7, MCV 96.5 H, MCH 34.5 H, MCHC 35.7, RDW Std Deviation 45.2 H, RDW Coeff of Bunny 12.7, Plt Count 132 L, MPV 9.6, Immature Gran % (Auto) 0.300, Neut % (Auto) 54.2, Lymph % (Auto) 31.7, [place] % (Auto) 8.1, Eos % (Auto) 4.8, Baso % (Auto) 0.9, Absolute Neuts (auto) 3.7, Absolute Lymphs (auto) 2.18, Nucleated RBC % 0, Sodium 141, Potassium 4.4, Chloride 105, Carbon Dioxide 25.6, Anion Gap 10, BUN 19, Creatinine 1.12, Estim Creat Clear Calc 75.30, Est GFR (MDRD) Non-Af 73, BUN/Creatinine Ratio 16.6, G lucose 113 H, Calcium 9.4, Troponin T High Sens 16 Cardiology Labs/Tests 09/17/24 19:25: WBC 6.9, RBC 4.32 L, Hgb 14.9, Hct 41.7, MCV 96.5 H, MCH 34.5 H, MCHC 35.7, Plt Count 132 L, MPV 9.6, Immature Gran % (Auto) 0.300, Neut % (Auto) 54.2, Lymph % (Auto) 31.7, [place] % (Auto) 8.1, Eos % (Auto) 4.8, Baso % (Auto) 0.9, Absolute Neuts (auto) 3.7, Nucleated RBC % 0, Sodium 141, Potassium 4.4, Chloride 105, Carbon Dioxide 25.6, Anion Gap 10, BUN 19, Creatinine 1.12, Est GFR (MDRD) Non-Af 73, BUN/Creatinine Ratio 16.6, Glucose 113 H, Calcium 9.4 Rhythm: EKG: ECHO: Stress Test: Cardiac Cath: PCI: CT Surgery: Holter monitor: EPS: PPM: CXR: Chest CT Scan:
[2024-09-17 22:00] VITALS: BP 165/99; PULSE 63; RESP 20; O2SAT 98
[2024-09-17 22:34] LABS: Troponin T High Sens 2 HR 16 ng/L (<=22)
[2024-09-17 22:52] VITALS: BP 165/99; PULSE 77; RESP 16; TEMP 37.1; O2SAT 97
== END 2024-09-17 22:52 | disposition home or self-care (01) ==
PROVIDERS: Emergency Provider Emergency Medicine; PCP Nurse Practitioner Family; Referring Provider Emergency Medicine; Visit Provider Emergency Medicine
DX: R06.02 Shortness of breath (principal); I10 Essential (primary) hypertension; I25.118 Atherosclerotic heart disease of native coronary artery with other forms of angina pectoris; E78.5 Hyperlipidemia, unspecified; F17.290 Nicotine dependence, other tobacco product, uncomplicated; Z86.16 Personal history of COVID-19; Z79.82 Long term (current) use of aspirin; Z79.899 Other long term (current) drug therapy; Z95.2 Presence of prosthetic heart valve; Z79.02 Long term (current) use of antithrombotics/antiplatelets; Z95.3 Presence of xenogenic heart valve
CPT/HCPCS: 80048; 84484; 85025; 93005; 99285; A4216

== ENCOUNTER → 2024-11-04 | Outpatient (CLI) | payer OTHER, SELFPAY ==
--- NOTE | 2024-11-04 07:05 | ECHOD_ITS ---
Reason For Study : BASHIR Procedure This was a 2D Doppler, Color Flow transthoracic echocardiogram. Exam performed in department. Left Ventricle Normal LV size. The left ventricular ejection fraction is 65 %. Stage 1 diastolic dysfunction. No regional wall motion abnormalities noted. Right Ventricle Normal RV size. Normal systolic function. Tricuspid Valve Normal tricuspid valve. Aortic Valve Peak aortic valve gradient 84 mmHg. Mean aortic valve gradient 55 mmHg. Mild (1+) aortic valve insufficiency. Bioprosthetic aortic valve. Great Vessels Normal aortic root. The pulmonary artery is normal size. Inferior vena cava collapse with respiration. Pericardium/Pleural No pericardial effusion. MMode/2D Measurements & Calculations LVIDd: 4.6 cm IVSd: 1.3 cm LVOT diam: 2.0 cm LVIDs: 3.3 cm LVPWd: 1.2 cm RVDd: 3.3 cm FS: 28.2 % LVOT area: 3.3 cm2 LAV(MOD-bp): 53.4 ml SV(MOD-sp4): 52.7 ml LVAd ap4: 26.7 cm2 LAV(MOD-bp) Indexed: 24.8 ml/m2 LVLd ap4: 7.5 cm SI(MOD-sp4): 24.5 ml/m2 LAV(MOD-sp2): 62.0 ml EDV(MOD-sp4): 81.8 ml LAV(MOD-sp4): 40.9 ml EDV(sp4-el): 80.8 ml LVAs ap4: 14.3 cm2 LVLs ap4: 6.5 cm ESV(MOD-sp4): 29.1 ml ESV(sp4-el): 26.7 ml EF(MOD-sp4): 64.4 % EF(sp4-el): 66.9 % SV(sp4-el): 54.1 ml LA A4 area: 16.0 cm2 LA dimension(2D): 3.2 cm RA A4 area: 11.0 cm2 Time Measurements MV dec time: 0.31 sec Doppler Measurements & Calculations MV E max joselito: 65.7 cm/sec Lat Peak E' Joselito: 6.5 cm/sec Med Peak E' Joselito: 3.2 cm/sec MV A max joselito: 107.8 cm/sec E/E' lat: 10.1 E/E' med: 20.4 MV E/A: 0.61 MV V2 max: 121.5 cm/sec MV P1/2t max joselito: 74.7 cm/sec Ao V2 max: 458.5 cm/sec MV max P.9 mmHg MV P1/2t: 94.5 msec Ao max P.1 mmHg MV V2 mean: 59.8 cm/sec MV dec slope: 231.5 cm/sec2 Ao V2 mean: 350.9 cm/sec MV mean P.8 mmHg Ao mean P.5 mmHg MV V2 VTI: 27.6 cm MVA(P1/2t): 2.3 cm2 Ao V2 VTI: 102.6 cm MVA(VTI): 1.8 cm2 AV (velocity ratio): 0.15 CHARITY(I,D): 0.49 cm2 CHARITY(V,D): 0.55 cm2 AI max joselito: 397.3 cm/sec LV V1 max: 76.6 cm/sec SV(LVOT): 50.7 ml AI max P.0 mmHg LV V1 max P.4 mmHg AI dec slope: 177.3 cm/sec2 LV V1 mean P.4 mmHg AI P1/2t: 656.3 msec LV V1 mean: 54.6 cm/sec LV V1 VTI: 15.4 cm PA V2 max: 138.1 cm/sec PA V2 mean: 88.7 cm/sec ECHO/Echo Complete Interpretation Summary Normal LV size. The left ventricular ejection fraction is 65 %. Stage 1 diastolic dysfunction. Mean aortic valve gradient 55 mmHg. Bioprosthetic aortic valve. Mild (1+) aortic valve insufficiency. Compared to the previous the aortic stenosis is much worse. Severe bioprosthetic aortic stenosis Ordering Physician: Gina Blanton Referring Physician: Renee Menjivar Performed By: Clari Olvera RDCS, RVT
--- NOTE | 2024-11-04 08:33 | RAD_ITS ---
PROCEDURE: CHEST PA AND LATERAL 11/04/2024 REASON FOR EXAM: CHEST PAIN TECHNIQUE: Frontal and lateral views of the chest. COMPARISON: 07/18/2022 FINDINGS: The lungs appear clear. Pulmonary vascularity appears within limits. No pleural effusion. Status post median sternotomy and valve replacement. The cardiac and mediastinal contours appear within limits. Visualized osseous structures appear within limits. RAD/Chest PA and Lateral IMPRESSION: No evidence of acute disease. Reading Location: [id number]
--- NOTE | 2024-11-04 10:29 | STRESSREP ---
Stress Test Report Exercise myocardial perfusion stress test. 64-year-old man with a history of coronary artery disease and aortic valve replacement. Stress protocol: Resting EKG demonstrates normal sinus rhythm with a rate of 66 bpm resting blood pressure is 150/88 mmHg. The patient exercised according to the regular Joshua protocol for a total duration of 5-1/2 minutes attaining a maximum heart rate of 129 bpm which was 82% of maximum predicted heart rate; the maximum workload was 7 metabolic equivalents. At rest there were no ST or T wave changes noted to suggest ischemia and at peak exercise downsloping ST changes of approximately 2.7 mm were noted in lead II, aVF, and lead III and in V6 suggestive of ischemia. No clinical angina was noted the test was terminated due to the target heart rate being achieved/fatigue. Patient was also noted to be rather short of breath. The peak blood pressure was 158/96 mmHg. Rate-pressure product was 13,000. Myocardial perfusion protocol. 11.8 mCi of technetium 99m sestamibi was injected at rest. The patient exercised according to regular Joshua protocol for total duration of 5-1/2 and at peak exercise 33.5 mCi of technetium 99m sestamibi was injected stress images were obtained stress and rest images were reconstructed in comparing the short axis vertical long and horizontal long axis. Gated images were also obtained. Perfusion SPECT analysis: Review of the stress images demonstrate normal uptake of tracer noted in all areas of the myocardium. There was mild reduction of perfusion noted in the mid anteroseptal wall as well as the mid inferior wall. The resting images demonstrated mild improvement in the anteroseptal and inferior wall suggestive of ischemia in these 2 areas. Previous basal inferior infarct is suggested as well. Gated SPECT analysis: The gated ejection fraction is 47%. Conclusion: Abnormal exercise myocardial perfusion stress test at a moderate workload Low normal ejection fraction. Anteroseptal and inferior ischemia present.
[2024-11-04 12:26] LABS: Absolute Lymphocyte Count 1.87 X10^3/uL (0.83-4.51); Absolute Neutrophil Count 5.7 X10^3/uL (2.0-7.7); Basophil% 1.2 % (0-1); Eosinophil# 0.32 X10^3/uL; Eosinophils% 3.7 % (0-5); Hematocrit 46.8 % (40-54); Hemoglobin 16.6 g/dL (13.0-16.5); Lymphocyte # 1.87 X10^3/ul (0.83-4.51); Lymphocyte % 21.8 % (19-41); Mean Corp Hgb Conc 35.5 g/dL (32-36); Mean Corpuscular Hgb 33.9 pg (27.0-32.0); Mean Corpuscular Volume 95.7 fL (80-94); Mean Platelet Vol. 10.2 fl (6.2-12.0); Monocyte# 0.62 X10^3/uL; Monocyte% 7.2 % (0-10); NRBC Flagged by Analyzer 0 % (0-5); Neutrophil # 5.65 X10^3/uL (2.7-7.7); Neutrophil % 65.8 % (47-70); Platelet Count 140 K/mm3 (150-450); RBC Distribution Width CV 12.6 % (11.6-14.6); RBC Distribution Width SD 44.1 fl (35.1-43.9); Red Blood Count 4.89 M/mm3 (4.6-6.2); White Blood Count 8.6 K/mm3 (4.4-11.0)
[2024-11-04 12:44] LABS: Anion Gap 13 (5-15); BUN 22 mg/dL (4-19); Calcium,Total 9.6 mg/dL (7.6-11.0); Chloride 104 mmol/L (98-108); Creatinine, Serum 1.04 mg/dL (0.70-1.20); EST Glomerular Filtration Rate 80 (>60); Glucose 120 mg/dL (70-99); Potassium 4.6 mmol/L (3.3-5.1); Sodium Level 140 mmol/L (133-145)
== END | disposition home or self-care (01) ==
PROVIDERS: Internal Medicine Cardiovascular Disease; PCP Nurse Practitioner Family; Referring Provider Nurse Practitioner Gerontology; Visit Provider Nurse Practitioner Gerontology
DX: R06.09 Other forms of dyspnea (principal); Z95.3 Presence of xenogenic heart valve; Z98.890 Other specified postprocedural states; Z95.1 Presence of aortocoronary bypass graft; I25.10 Atherosclerotic heart disease of native coronary artery without angina pectoris; R07.9 Chest pain, unspecified
CPT/HCPCS: 36415; 71046; 78452; 80048; 85025; 93017; 93306; A9500; A4216

== ENCOUNTER → 2024-11-18 | Day surgery (SDC) | payer OTHER, SELFPAY ==
--- NOTE | 2024-11-17 10:09 | PCM.HP.BLA ---
History and Physical Date of Admission: 11/18/24 Pleasant 64-year-old man who presents for a BRY to further assess his bioprosthetic aortic valve. He has a history of coronary artery disease bicuspid aortic valve status post four-vessel coronary bypass surgery with a left internal mammary artery to the left anterior descending artery, saphenous vein graft to diagonal branch, saphenous vein graft to obtuse marginal branch, and saphenous vein graft to right coronary artery. He also had an aortic valve replacement with a 23 mm bioprosthetic aortic valve. He was evaluated [facility] in August 2023 for strokelike symptoms of presyncope. He had a CTA that was concerning for severe stenosis versus occlusion of the nondominant right vertebral artery. He underwent an MRI that showed no stroke. His EEG was within normal limits. He was discharged with recommendation to follow-up with cardiology. He had an echocardiogram on 09/07/2023 that showed ejection fraction of 67% and a mean aortic valve gradient of 25 mmHg. From a cardiac standpoint, the patient is doing well. He denies any palpitations, chest pain, pressure or heaviness. He states that when he lays on his left side, he does notice a small pain. He does acknowledge BASHIR-going up stairs. This is newer over the last few months. He denies Orthopnea, and PND. He does not have bleeding issues; no blood in urine, stool, or nosebleeds. He denies any decrease in energy level, myalgias, or claudication. He does not have edema, or sudden weight gain. He denies lightheadedness, dizziness, syncopal or near syncopal episodes, and headaches. Intake Vital Signs See EMR Allergies See EMR Medications See EMR [facility] Medical History Erectile dysfunction Stroke-like symptoms Vertebral artery stenosis Essential hypertension Strain of lumbar region Gout COVID-19 (09/2019) Aortic stenosis with bicuspid valve Hyperlipidemia Atherosclerotic heart disease of [place] coronary artery without angina pectoris Surgical History H/O removal of cyst H/O coronary artery bypass surgery (04/05/17) History of aortic valve replacement with bioprosthetic valve (04/05/17) Family History Mother Sudden cardiac CVA (cerebral vascular accident)Father CAD (coronary artery disease) Sudden cardiac deathBrother Diabetes Myocardial infarction Social History Smoking Status: Current every day smoker tobacco type: cigars per week: 5 Tobacco: How many years used: 30 how long ago did patient quit smokin04/04/2017 alcohol intake: current alcohol intake frequency: a few times a week Alcohol type: beer substance use type: does not use what type of physical activity do you participate in: other details: cardiac rehab frequency: 3-4 times per week duration: 15-30 minutes/day seatbelt use: always do you feel safe at home: Yes ROS Const Const: Negative for fatigue, weakness, headache(s) or frequent falls Eyes Eyes: Negative for blurry vision ENT ENT: Negative for headache(s), dizziness or Nosebleed/epistaxis Cardio Chest Pain: No Palpitations: No Edema: None Muscle aches with walking: None Resp Respiratory: Positive for SOB with activity (newer); Negative for SOB at rest or SOB orthopnea\SOB lying down GI GI: Negative nausea, vomiting, heartburn, bright, red blood in stools or black,tarry stools : Negative for hematuria Neuro Neuro: Negative for dizziness, lightheadedness, near syncope, syncope, frequent falls, headache(s), weakness or blurry vision Endo Endo: Negative for fatigue Cardiology Exam Const Appearance: cooperative, healthy appearing, comfortable and no acute distress Nutritional Appearance: well nourished and overweight Orientation: alert, awake and oriented x3 Head Head: normal to inspection Ears: hearing grossly normal bilaterally Nose: external nose normal Face and Sinus: face symmetric Mouth: moist mucous membranes Eyes General: appearance normal, both eyes and all related structures Eyelids: eyelids normal EOM: EOM intact bilaterally Neck Neck: normal visual inspection and no JVD Carotids: normal carotid upstroke Chest Chest inspection: normal inspection of the chest, symmetric chest movement and normal respiratory effort; Negative cough Auscultation: Bilateral: Clear to Auscultation Cardio Rate: regular rate Rhythm: regular rhythm Heart sounds: S1 normal, S2 normal and murmur; Negative rub or gallop Murmur: Grade 3/6, harsh and EVERT loudest primary aortic area GI GI: normal to inspection Neuro General: patient alert, patient awake, patient oriented x3 and CN's II-XI intact bilaterally Skin Skin: no rashes or lesions noted Extremities Pulses: Normal: Right Posterior Tibial Pulse, Left Posterior Tibial Pulse, Right Radial Pulse and Left Radial Pulse Lower Extremity Edema: None: Bilateral Psych Psychological: normal affect Supplemental Info Supplemental Information Echocardiogram 11/04/2024: Interpretation Summary Normal LV size. The left ventricular ejection fraction is 65 %. Stage 1 diastolic dysfunction. Mean aortic valve gradient 55 mmHg. Bioprosthetic aortic valve. Mild (1+) aortic valve insufficiency. Compared to the previous the aortic stenosis is much worse. Severe bioprosthetic aortic stenosis Echocardiogram 09/07/2023 Interpretation summary Left ventricle: Left ventricle size is normal. Mildly increased wall thickness. Normal left ventricular systolic function. EF by 2D Fox's biplane is 67%. Normal wall motion. Right ventricle: Right ventricle size is normal. Normal systolic function. Aortic valve: Not well-visualized. Bioprosthetic aortic valve. AV mean gradient is 25 mmHg. Trace regurgitation. Elevated prosthetic gradient. AV mean gradient is 25 mmHg. AV peak velocity is 3.5 ms. LVOT:AV VTI index is 0.30. Aorta: Normal sized sinuses of Valsalva. Mildly dilated ascending aorta. Ao ascending diameter is 4.2 cm. Technically difficult study. Echocardiogram from 09/28/2020: Interpretation Summary Normal LV size. Left ventricular systolic function is normal. The estimated ejection fraction is 60 %. Stage 1 diastolic dysfunction. Mean aortic valve gradient 12 mmHg. Mild aortic stenosis. Bioprosthetic aortic valve. Stress test on 09/28/2020: Conclusion: Normal exercise myocardial perfusion stress test at a high workload. Excellent functional aerobic capacity. No clinical angina. Lower extremity arterial study from 07/01/2017: Impression: Based on the findings of this resting noninvasive lower extremity arterial study, there is evidence of arterial calcification in the arterial tree of the lower extremities. This is suspected due to supra-normal ankle-brachial indices bilaterally. However, triphasic waveforms are noted at ankle level bilaterally, suggesting relatively normal arterial flow. Furthermore, the right digital-brachial index is normal. The left digital-brachial index is slightly diminished, which may be suggestive of mild, distal, small-vessel arterial occlusive disease in the left lower extremity, for which clinical correlation is advised. Assessment and Plan Assessment and Plan (1) History of aortic valve replacement with bioprosthetic valve: Status: Chronic Comment: AVR with #23 Bioprosthesis 04/05/2017 Plan: Patient has a history of aortic valve replacement in 2017. He does acknowledge dyspnea on exertion, and states this is newer. On exam his murmur did sound louder, 09/03. His echocardiogram on 11/04/2024 demonstrated severe bioprosthetic aortic stenosis, which is worse compared to his previous echocardiogram. Would like to proceed with a BRY to further assess this. Depending on results, further recommendations will be made.
--- NOTE | 2024-11-18 10:25 | ECHOTEE_ITS ---
Reason For Study Reason For Study: VALVE REPLACEMENT EVAL Medication BRY probe 6VT-D (SN [id number]) passed without difficulty. No complications were noted. Cetacaine Topical [place] given X3 orally. Versed 4 mg given slow IVP. Fentanyl 50 mcg given slow IVP. Performed a rapid injection of agitated mix of 9 cc saline and 1cc air to assess for atrial septal defect. Left Ventricle Normal LV size. The left ventricular ejection fraction is 65 %. No regional wall motion abnormalities noted. Right Ventricle Normal RV size. Normal systolic function. The right ventricular wall motion is normal. Atria Normal atrial septum. Normal left atrium. No thrombus is detected in the left atrial appendage. Normal right atrium. Mitral Valve Bileaflet diffuse mitral valve thickening. Mild-Moderate (1-2+) eccentric mitral valve insufficiency. Tricuspid Valve Normal tricuspid valve. Mild tricuspid valve insufficiency. Aortic Valve Bioprosthetic aortic valve. Restriction of valve excursion especially the left cusp. Pulmonic Valve Normal pulmonic valve. Vessels Normal aortic root. Pericardium No pericardial effusion. ECHO/Echo Transesophageal (BRY) Interpretation Summary The left ventricular ejection fraction is 65 %. Normal LV size. Restriction of valve excursion especially the left cusp No regional wall motion abnormalities noted. Bileaflet diffuse mitral valve thickening. Mild-Moderate (1-2+) eccentric mitral valve insufficiency. Stenotic bioprosthetic valve. Ordering Physician: Gina Blanton Referring Physician: Renee Menjivar Performed By: Clari Olvera, RDCS, RVT
== END | disposition home or self-care (01) ==
LOC: CVS 10:22
PROVIDERS: PCP Nurse Practitioner Family; Referring Provider Nurse Practitioner Gerontology; Visit Provider Nurse Practitioner Gerontology
DX: Q23.0 Congenital stenosis of aortic valve (principal); R06.09 Other forms of dyspnea; E78.5 Hyperlipidemia, unspecified; I10 Essential (primary) hypertension; Z86.16 Personal history of COVID-19; Z82.49 Family history of ischemic heart disease and other diseases of the circulatory system; F17.210 Nicotine dependence, cigarettes, uncomplicated; Z95.1 Presence of aortocoronary bypass graft; I25.10 Atherosclerotic heart disease of native coronary artery without angina pectoris; Q23.1 Congenital insufficiency of aortic valve; Z95.3 Presence of xenogenic heart valve
CPT/HCPCS: 93312; 93320; 93325; A4216

== ENCOUNTER → 2025-02-26 | Outpatient (CLI) | payer OTHER, SELFPAY ==
--- NOTE | 2025-02-26 10:45 | ECHOD_ITS ---
Reason For Study Reason For Study: S/P AVR/CABG/ PFO CLOSURE Procedure This was a 2D Doppler, Color Flow transthoracic echocardiogram. Myocardial strain analysis was performed in this exam to aid in the assessment of cardiac function. Exam performed in department. Left Ventricle Normal LV size. The left ventricular ejection fraction is 55 %. Post operative septal motion. Stage 1 diastolic dysfunction. No regional wall motion abnormalities noted. Right Ventricle Normal RV size. Normal systolic function. Atria Normal left atrium. Normal right atrium. Mitral Valve Normal mitral valve. Tricuspid Valve Normal tricuspid valve. Mild tricuspid valve insufficiency. Pulmonary artery systolic pressure is 17 mmHg. Aortic Valve Peak aortic valve gradient 20 mmHg. Mean aortic valve gradient 11 mmHg. Bioprosthetic aortic valve. Pulmonic Valve Normal pulmonic valve. Great Vessels Normal aortic root. The pulmonary artery is normal size. Inferior vena cava collapse with respiration. Pericardium/Pleural No pericardial effusion. MMode/2D Measurements & Calculations LVIDd: 4.7 cm IVSd: 1.1 cm LVOT diam: 2.1 cm LVIDs: 3.2 cm LVPWd: 0.93 cm LVOT area: 3.6 cm2 RVDd: 4.2 cm FS: 32.9 % asc Aorta Diam: 3.1 cm LAV(MOD-bp): 53.6 ml LVAd ap4: 25.1 cm2 LAV(MOD-bp) Indexed: 26.0 ml/m2 LVLd ap4: 7.6 cm LAV(MOD-sp2): 57.6 ml EDV(MOD-sp4): 68.8 ml LAV(MOD-sp4): 48.2 ml EDV(sp4-el): 69.9 ml LVAs ap4: 16.0 cm2 LVLs ap4: 7.1 cm ESV(MOD-sp4): 32.9 ml ESV(sp4-el): 30.7 ml EF(MOD-sp4): 52.2 % EF(sp4-el): 56.1 % LVAd ap2: 26.3 cm2 SV(MOD-sp4): 35.9 ml SV(MOD-sp2): 38.2 ml LVLd ap2: 7.7 cm SI(MOD-sp4): 17.4 ml/m2 SI(MOD-sp2): 18.6 ml/m2 EDV(MOD-sp2): 75.4 ml EDV(sp2-el): 75.9 ml LVAs ap2: 17.3 cm2 LVLs ap2: 7.2 cm ESV(MOD-sp2): 37.2 ml ESV(sp2-el): 35.3 ml EF(MOD-sp2): 50.6 % SV(sp4-el): 39.2 ml Ao sinus diam: 3.[address] Junction: 2.9 cm LA dimension(2D): 3.9 cm LA A4 area: 18.6 cm2 RA A4 area: 14.0 cm2 TAPSE: 0.87 cm Time Measurements MV dec time: 0.23 sec Doppler Measurements & Calculations MV E max joselito: 98.2 cm/sec Lat Peak E' Joselito: 10.5 cm/sec Med Peak E' Joselito: 5.3 cm/sec MV A max joselito: 106.8 cm/sec E/E' lat: 9.4 E/E' med: 18.6 MV E/A: 0.92 MV dec slope: 431.1 cm/sec2 Ao V2 max: 224.5 cm/sec LV V1 max: 144.6 cm/sec Ao max P.2 mmHg LV V1 max P.4 mmHg Ao V2 mean: 151.9 cm/sec LV V1 mean P.8 mmHg Ao mean P.6 mmHg LV V1 mean: 102.1 cm/sec Ao V2 VTI: 41.8 cm LV V1 VTI: 31.3 cm AV (velocity ratio): 0.75 CHARITY(I,D): 2.7 cm2 CHARITY(V,D): 2.3 cm2 SV(LVOT): 111.5 ml PA V2 max: 98.4 cm/sec TR max joselito: 182.6 cm/sec TR max P.2 mmHg ECHO/Echo Complete Interpretation Summary Normal LV size. The left ventricular ejection fraction is 55 %. Stage 1 diastolic dysfunction. Bioprosthetic aortic valve. Mean aortic valve gradient 11 mmHg. The global longitudinal strain is moderately abnormal. The global longitudinal strain = -13.2% (abnormal). Ordering Physician: Radu Rivas Referring Physician: Radu Rivas MD Performed By: Jessenia Barriga RDCS
== END | disposition home or self-care (01) ==
LOC: CVS 10:41
PROVIDERS: PCP Nurse Practitioner Family; Referring Provider Internal Medicine Cardiovascular Disease; Visit Provider Internal Medicine Cardiovascular Disease
DX: Z95.1 Presence of aortocoronary bypass graft (principal); Z95.3 Presence of xenogenic heart valve; Z98.890 Other specified postprocedural states
CPT/HCPCS: 93306

== ENCOUNTER → 2025-03-09 | Outpatient (CLI) | payer OTHER, SELFPAY ==
--- NOTE | 2025-03-09 10:09 | PCM.CR.HP2 ---
CR - History & Physical General Arrival date:: 03/09/25 Arrival time:: 10:09 Date of Referral:: 03/03/25 Date of CR Evaluation:: 03/09/25 Referring Physician: Dr. Rivas Primary Diagnosis: Heart Valve Replacement History of Present Cardiac Event Onset Date Coronary Artery Bypass Graft:: Yes Heart valve replacement or repair:: Yes (onset 01/22/25) Medications Ambulatory Orders ?Medication ?Instructions ?Recorded aspirin 81 mg tablet,delayed 81 mg PO DAILY 10/03/23 release duloxetine 20 mg capsule,delayed 20 mg PO QDAY 10/03/23 release pantoprazole 40 mg tablet,delayed 40 mg PO DAILY #90 tabs 10/03/23 release atorvastatin 80 mg tablet 80 mg PO QHS 12/19/23 buspirone 5 mg tablet 5 mg PO TID PRN 09/17/24 sildenafil 100 mg tablet 100 mg PO DAILY PRN sexual activity 09/17/24 colchicine 0.6 mg tablet 0.6 mg PO BID PRN 10/08/24 amiodarone 200 mg tablet 200 mg PO QDAY 03/03/25 amoxicillin 250 mg capsule 1,000 mg (4 x 250 mg) PO ONCE #4 03/03/25 caps apixaban 5 mg tablet (Eliquis) 5 mg PO BID #180 tabs 03/03/25 ipratropium 20 mcg-albuterol 100 1 puff inhalation Q6H 03/03/25 mcg/actuation mist for inhalation (Combivent Respimat) metoprolol succinate 50 mg 50 mg PO BID #180 tabs 03/03/25 tablet,extended release 24 hr multivitamin-ferrous 1 tab PO QAM 03/03/25 fumarate-folic acid 18 mg-400 mcg tablet (Certavite-Antioxidant) polyethylene glycol 3350 17 4 g PO BID 03/03/25 gram/dose oral powder Allergies Allergies acetaminophen (From Lorcet (hydrocodone)) Allergy (Mild, Verified 03/03/25 10:05) CONFUSION hydrocodone (From Lorcet (hydrocodone)) Allergy (Mild, Verified 03/03/25 10:05) CONFUSION oxycodone (From Percocet) Adverse Reaction (Severe, Verified 03/03/25 10:05) Nausea sweating and nausea Sleep Disorder Evaluation Hx of Sleep Apnea: No Do you snore loudly (louder than talking or can be heard through closed doors)?: No Do you often feel tired/ fatigued/ sleepy during daytime?: No Has anyone observed you stop breathing during sleep?: No History of Hypertension (for STOP score): Yes STOP Results: Negative Advanced Directives Advanced Directives Do you have a Healthcare Power of Reinforcing [employer]er [employer] Mesh?: No Living Will: No Advance Directives Information Provided: No Advance Directives on File: No DNR Order?:: No Past Medical History Covid-19 Screening Physicial Symptoms Other Clinical Concerns Exposure Risk Pertinent Comorbidities Has a serious heart condition:: Yes Past Medical Illness Past Medical History (Updated 03/03/25 @ 11:44 by HERMELINDO Duran) Erectile dysfunction N52.9 Stroke-like symptoms R29.90 Vertebral artery stenosis I65.09 Essential hypertension I10 Strain of lumbar region S39.012A Gout M10.9 COVID-19 (09/2019) U07.1 Aortic stenosis with bicuspid valve Q23.0, Q23.1 Hyperlipidemia E78.5 Atherosclerotic heart disease of [place] coronary artery without angina pectoris I25.10 Past Surgical History Past Surgical History (Updated 03/03/25 @ 14:11 by HERMELINDO Duran) History of aortic valve replacement (01/26/25) Z95.2 AVR with #23 Bioprosthesis 04/05/2017. Redo sternotomy, AVR (25 Epic Max), Ascending aorta replacement (28 [employer]weave), CABG x1 (SVG-distal LAD), PFO closure H/O removal of cyst Z98.890 H/O coronary artery bypass surgery (04/05/17) Z95.1 CABG x 4: LUNA to LAD, SVG to D1, SVG to OM1, SVG to RPDA 04/05/2017. CABG x 1 with SVG to the distal LAD 01/26/2025 History of aortic valve replacement with bioprosthetic valve (04/05/17) Z98.890, Z95.3 AVR with #23 Bioprosthesis 04/05/2017; redo sternotomy, AVR with 25 epic max 01/26/2025 Surgical History: total knee arthroplasty and - Family History Summary Family History Mother Sudden cardiac CVA (cerebral vascular accident) Father CAD (coronary artery disease) Sudden cardiac Brother Diabetes Myocardial infarction Social History Smoking History Smoking Status: Current some day smoker Years Smokin (1-2 cigars a day) Alcohol Use Alcohol Usage: Yes (rare) Occupation Occupation (List type of work in comments):: Employed Hours worked per day:: 8 Social Environment Status Marital Status: Single Current Living Arrangements Living Environment:: Spouse (significant other) Children How many children do you have?: 2 Do any of your children live nearby?: No Safety Do you feel safe in your surroundings?: Yes Assistance Do you need any assistance at home?: no Review of Systems Review of Systems Hints Review of Present Symptoms: Reports Shortness of Breath with Exertion, PVD, Operative Discomfort, Angina, Fatigue, Heart Arrhythmia/Irregularities and Appetite - Special Diet; Denies Shortness of Breath at Rest, Wound Healing, Dizziness/Lightheadedness, Appetite - Normal or Sleep - Normal Pain Is Patient Pain Free?: No Pain Location: neck Pain Level: 12/08 Risk Factor Assessment Chief Complaint Chief Complaint: Heart Valve Replacement Vital Signs Pulse Ox: 98 Pulse Pulse Rate: 65 Hypertension Blood Pressure Sitting - Right Arm: 114/78 Stress Stress: Work-related Obesity Height: 6 ft 1 in Weight:: 168 lb Weight in Pounds: 168.0 lbs Body Mass Index (BMI): 22.1 Physical Inactivity Physical Inactivity: Reg Exercise 30 min/day Risk Stratification Risk Guidelines: Lowest Risk: Risk Factor for Smoking, Moderate Risk: Risk Factor for Diabetes, Risk Factor for Obesity, Risk Factor for Sedentary Lifestyle and Risk Factor for Depression and Highest Risk: Risk Factor for Dyslipidemia and Risk Factor for Hypertension For Smoking Smoking Risk Guidelines For Dyslipidemia Dyslipidemia Risk Guidelines For Diabetes Mellitus Diabetes Risk Guidelines For Obesity/Overweight Obesity/Overweight Risk Guidelines For Hypertension Hypertension Risk Guidelines For Sedentary Lifestyle Sedentary Lifestyle Risk Guidelines For Depression Depression Risk Guidelines Family History Family History Mother Sudden cardiac CVA (cerebral vascular accident) Father CAD (coronary artery disease) Sudden cardiac Brother Diabetes Myocardial infarction Motivation Motivation to Participate On a scale of 1 to 10, how prepared are you to commit to attending program?: 5 What do you see as barriers to successfully being able to complete the program?: nothing What do you see as the benefits of succesfully completing the program? In other words, what do you hope to get out of participating in the program?: more energy Are there issues you are dealing with that will interfere with completing the program?: no Do you have a spouse or signficant other, family or friends who will help support you to complete the program?: yes
[2025-03-09 10:15] VITALS: BP 114/78; PULSE 65; O2SAT 98
--- NOTE | 2025-03-09 10:17 | CR.ITP_ITS ---
Diagnosis General Information Admitting Diagnosis: Heart Valve Replacement Personal Learning Style:: Audio/Visual Barriers to Learning: No Barriers Stage of change r/t lifestyle modifications:: Contemplation Gave educational material for:: Treating Heart Disease, How The Heart Works, What it means to have Heart Disease, How Coronary Artery Disease is Diagnosed, Heart Procedures, What Heart Medications Do, Risk Factors & Modifications, Living an Active Life, Nutrition, Emotions & Heart Disease, Stress Management & Relaxation and Sleep Disorders & Heart Disease Education/Goals Cardiac Rehabilitation Goals Personal Goals: Initial Assessment: Quit smoking (participate in smoking cessation, Improve energy level, Get back to work, or to resume activities faster, Improve muscle strength and endurance and Other goal: (prevent stroke) Scale for measuring improvement of personal goals Diagnosis & Disease Process Outcomes/Goals: Pt IDs own risk factors & lifestyle modifications by Session 10, Verbalizes symptoms of angina & response by session 3., Pt independently manages and Other Additional Outcomes/Goals: Plan/Interventions: Assist Pt to ID & engage in lifestyle modification to reduce CVD risk, Instruct on individual risk factors, Review symptoms of angina & emergency actions, Review secondary diagnosis & identify educational needs. and Other see comment 30 day Reassessments:: Not Met 30 day Reassessments:: Not Met 30 day Reassessments:: Not Met 30 day Reassessments:: Not Met Final Reassessments:: Not Met Safety Referral to Physical Therapy: No Referral to [facility] Case Management: No Fall Risk Assessed:: Yes Assistive Devices:: None Exercise - Initial Assessment Visit Date of Eval: 03/09/25 (initial eval ) Mets: Pre-: >3 METS for 30 minutes by discharge, >5 METS for 30 minutes by discharge, >7 METS for 30 minutes by discharge and Unable to meet goal due to: (see comment below) Physician Prescribed Exercise Modalities: Treadmill, Schwinn Airdyne AD-7, SciFit Stepper, SciFit Pro-II Ergometer and SciFit Lateral Dimmitt Frequency: 3x/week for 12 weeks [36 sessions] Intensity: 60-80% of age predicted maximum heart rate reserve Duration: 30 - 45 minutes Target Heart Rate:: 101-117 Resting Blood Pressure: 114/78 EKG Type: SR w/occas PVC Outcomes & Goals Goals:: Verbalizes understanding of THR, RPE & goal METS by session 6, Documents in home exercise log/reports 30 min aerobic 5 day/wk by DC, Demonstrates accurate pulse taking by DC and Other additional outcome/goals: see below Intervention & Plan Exercise Program Goals: Instruct on personal THR & RPE, Instruct on MET level & personal MET goal, Show patient to take own pulse /validate performance until accurate, Instruct on home exercise and Other additional plan/int Physical Activity Home Exercise Physical Activity - Home Exercise: Safe Exercise, Warm-up, Self-monitoring, Cool-Down, Home Exercise > 30 min Daily and Sitting Time <3 hours/daily Outcomes & Goals Outcomes/Goals: Demonstrates correct Warm-up/exercise Cool-Down (S3) if = 2.5 METs, Verbalizes symptoms of exercise intolerance by Session 3 (S3), Demonstrate safe equipment use (S3) & follows exercise prescrition (6) and Other: See below Intervention & Plan Plan/Intervention: Instruct warm-up & cool-down if exercising at > 2 METs, I nstruct on symptoms of exercise intolerance & actions to take, Instruct & monitor on saf, Assess intial functional capacity & safety risk and Other See below Nutrition - Initial Assessment Program Goals Nutrition Program Goals Patient has diagnosis of Hyperlipidemia (ICD E78)?: Yes Visit Date of Eval: 03/09/25 (initial eval) Cholesterol/Lipids (Other Core Measures) Determine presence & major risk factors that modify LDL goal: Hypertension or hypertensive medication, Low HDL cholesterol <40 mg/dL*, Family history of premature CHD in Male < 55 years: female <65 yearsFa and Age men > 45 years; women >/= 55 years Outcomes/Goals: Pt IDs own risk factors & lifestyle modifications by Session 10, Verbalizes symptoms of angina & response by session 3., Pt independently manages and Other Additional Outcomes/Goals: Intervention/Plan: Advocate for lipid panel cholesterol medication if applicable, Instruct on personal lipid levels & lipid goals/NCEP guidelines, Instruct on cholesterol and Other additional plan/int Referral to dietitian:: No (Nutrition score of 5.) Diabetes (Other Core Measures) Diabetes Type: Not Applicable Weight Mgt (Other Care) Height: 6 ft 1 in Weight:: 168 lb BMI: 22.1 Diagnosis Overweight/Obesity BMI> 30% ICD-10 E66: No Diagnosis High BMI/Morbid Obesity BMI> 35% ICD-10 Z68: No Outcomes/Goals: Pt sets, maintains & shows weight loss goal & trend during rehab Intervention/Plan: Instruct on ideal BMI & set weight loss goal w/patient, Assist pt to ID & incorporate diet changes for weight loss by S9, Refer to Structured Weight Loss program as appropriate and Encourage goal of using 250- 300dcal per session for weight loss Healthy Eating Habits Will attend diet classes:: Yes Outcomes/Goals:: Consume diet rich in vegs,fruits,whole grain/high fiber,fish,lean meat, Limit sat/trans fats,cholesterol & added salts & sugars and Other additional outcome/goals: Intervention/Plan:: Assess current eating habits Education Gave educational materials for:: Signs & symptoms of hypoglycemia, Signs & symptoms of hyperglycemia, Relate diabetes to coronary artery disease and Healthy eating Core - Initial Assessment Visit Date of Eval: 03/09/25 (initial eval ) Medication Compliance Preventative Medication(s):: Aspirin, Statin/lipid, Beta jazlyn and Eliquis H/O mental health issues: depression, anxiety, or addiction?: No Doesn?t believe in the benefits of treatment?: No Believes medications are unnecessary or harmful?: No Has a concern about medication side effects?: No Expresses concern over the cost of medications?: No Outcomes/Goals: Verbalizes medications,desired effect & common side effects @ DC, Pt self-reports following medication regimen, Keeps card in wallet w/medications listed by DC and Other additional outcome/goals: Interventions/plans: Instruct on medication effects & side effects, Review medication list w/patient every two weeks, Instruct importance of taking meds as ordered & assist problem solving and Other additional Tobacco Use Tobacco Use: Non-smoker Hypertension Hypertension Diagnosis:: Hypertension ICD-10 I10 Resting Blood Pressure:: 114/78 [place] [employer] Hypertension Guidelines Outcomes/Goals: Able to verbalize/achieve optimal blood pressure <130/80, Incorporates diet changes & exercise for blood pressure control by DC and Other additional outcomes/goals Interventions/plan: Instruct on optimal blood pressure, hypertension & medications, Instruct on effects of sodium, alcohol, stress, exercise &hypertension and Other additional plan/interventions Tobacco Cessation Referral Smoking Cessation Referral:: Yes Individual Education/Counseling:: No Education Schedule Given:: Yes Psychosocial - Initial Assess VIsit Date of Eval: 03/09/25 (initial eval ) Self-reported stressors: Medical/Health and Recent Illness Self-reported stressors Other/Comments:: Pt has a diagnosis of irritability. Pt seems down due to recent illness. Informed pt we can help get counseling multiple times. Pt declines at this time. Psychosocial Test Tool Used:: PHQ-9 Questionnaire phq-9 Severity See PHQ-9 Score: 16 Referral to Behavioral Health PS - Interventions: Yes: Attend Stress Management Classes Outcomes/Goals: See list Psychosocial Outcomes/Goals:: ID's personal stressors & 2 strategies to manage stress by discharge and Other Additional outcome/goals: Intervention/Plan: See List Interventions/Plan:: Assess stressors,coping strategies & signs of derpression on admission, Instruct/assist pt to develop coping & personal stress Mgt strategies, Refer to Behavioral Health if appropriate, Refer to Physician if appropriate, Instruct patient to recognize signs & symptoms of depression, Instruct patient to recog and Other additional plan/intervention Comments:: Pt has a diagnosis of irritability. Pt seems down due to recent illness. Informed pt we can help get counseling multiple times. Pt declines at this time. PARKER-Q SV Test Statements CAD is a disease of the arteries in the heart: False Examples of risk factors for heart disease: True Angina is chest pain or discomfort: I Don't Know The benefits of resistance training include: True Eating more meat and dairy products: False Anti-platelet medications such as aspirin are important: True The only effective way to manage stress: False An exercise warm-up slowly increases heart rate: True Prepared, processed foods usually have high sodium: True Depression is common after a heart attack: True The statin medications lower cholesterol: True To control blood pressure, lower the amount of sodium: True If someone gets chest discomfort during walking: False Transfats are partially hydrogenated vegetable oils: True Sleep apnea that is not treated increases the risk: False To control cholesterol, one should become a vegetarian: False Someone knows if he/she is exercising at the right level: True Diabetes cannot be prevented with exercise & health eating: False Stress is a large risk for heart attack: True A diet that can help lower blood pressure is rich in: True Total Score Total Correct Responses: 19 Self-Efficacy 6-Item Scale Initial Assessment: We would like to know how confident you are in doing certain activities. Please select your confidence level for: Fatigue Select Number: 2 Physical Discomfort or Pain Select Number: 5 Emotional Distress Select Number: 4 Other Symptoms or Health Problems Select Number: 1 Different Tasks and Activities Select Number: 5 Medication Select Number: 4 Total Score:: 3 Nutrition Survey Nutrition Survey Initial: Have you lost >10 lbs over the past 2 months without trying?: Yes Are you following a special diet at home for diabetes, low fat, or low salt?: Yes Are you interested in meeting with a dietitian for help understanding your diet?: No Do you eat less than 3 meals a day?: Yes Do you eat fatty meats (johnson, sausage, ribs, etc), fried foods, desserts, large amounts of salad dressings, margarine, butter, or cheese most days?: Yes Do you have food allergies? [Enter types in comment field]: No Do you eat in restaurants more than 3 times a week?: No Do you season food with salt, seasoning salt, or garlic salt?: No Do you used canned, boxed, frozen meals, or soups, seasoning packets?: Yes Total Score:: 5 Exercise - 30-day Assessment Physician Prescribed Exercise Modalities: Treadmill, Schwinn Airdyne AD-7, SciFit Stepper, SciFit Pro-II Ergometer and SciFit Lateral Granite Polisher Apprentice Exercise - 60-day Assessment Physician Prescribed Exercise Modalities: Treadmill, Schwinn Airdyne AD-7, SciFit Stepper, SciFit Pro-II Ergometer and SciFit Lateral Dimmitt Exercise - 90-day Assessment Physician Prescribed Exercise Modalities: Treadmill, Schwinn Airdyne AD-7, SciFit Stepper, SciFit Pro-II Ergometer and SciFit Lateral Granite Polisher Apprentice Exercise - Final/Discharge Physician Prescribed Exercise Modalities: Treadmill, Schwinn Airdyne AD-7, SciFit Stepper, SciFit Pro-II Ergometer and SciFit Lateral Granite Polisher Apprentice Frequency: 3x/week for 12 weeks [36 sessions] Intensity: 60-80% of age predicted maximum heart rate reserve Target Heart Rate:: 101-117 Nutrition - 30-Day Assessment Weight Mgt (Other Care) Height: 6 ft 1 in Weight:: 168 lb BMI: 22.1 Nutrition - 60-Day Assessment Weight Mgt (Other Care) Height: 6 ft 1 in Weight:: 168 lb BMI: 22.1 Core - Final Assessment Hypertension Resting Blood Pressure:: 114/78 [place] [employer] Hypertension Guidelines Core - 60-Day Assessment Hypertension Resting Blood Pressure:: 114/78 [place] [employer] Hypertension Guidelines Psychosocial - 30-Day Assess Referral to Behavioral Health PS - Interventions: Yes: Attend Stress Management Classes Psychosocial - 60-Day Assess Referral to Behavioral Health PS - Interventions: Yes: Attend Stress Management Classes Psychosocial - 90-Day Assess Referral to Behavioral Health PS - Interventions: Yes: Attend Stress Management Classes Psychosocial - Final Assessmen Psychosocial Test phq-9 Severity See PHQ-9 Score: 16 Referral to Behavioral Health PS - Interventions: Yes: Attend Stress Management Classes Nutrition - 90-Day Assessment Weight Mgt (Other Care) Height: 6 ft 1 in Weight:: 168 lb BMI: 22.1 Nutrition - Final Assessment Program Goals Patient has diagnosis of Hyperlipidemia (ICD E78)?: Yes Weight Mgt (Other Care) Height: 6 ft 1 in Weight:: 168 lb BMI: 22.1
[2025-03-09 10:26] VITALS: BP 114/78
[2025-03-09 11:04] VITALS: BMI 22.1
[2025-03-09 11:12] VITALS: BMI 22.1
== END | disposition home or self-care (01) ==
LOC: CR 10:09
PROVIDERS: PCP Nurse Practitioner Family; Referring Provider Internal Medicine Cardiovascular Disease; Visit Provider Internal Medicine Cardiovascular Disease
DX: Z95.2 Presence of prosthetic heart valve (principal); Q23.0 Congenital stenosis of aortic valve; Q23.1 Congenital insufficiency of aortic valve; I25.10 Atherosclerotic heart disease of native coronary artery without angina pectoris; I10 Essential (primary) hypertension; E78.00 Pure hypercholesterolemia, unspecified

== ENCOUNTER → 2025-03-22 | Outpatient (CLI) | payer OTHER, SELFPAY ==
[2025-03-09 11:04] VITALS: BMI 22.1
== END | disposition home or self-care (01) ==
LOC: PSN 07:37
PROVIDERS: PCP Nurse Practitioner Family; Referring Provider Student in an Organized Health Care Education/Training Program; Visit Provider Student in an Organized Health Care Education/Training Program
DX: I48.0 Paroxysmal atrial fibrillation (principal)
CPT/HCPCS: 93225; 93226

== ENCOUNTER 2025-03-29 08:00 | Outpatient (RCR) | payer OTHER, SELFPAY ==
[2025-03-09 11:04] VITALS: BMI 22.1
== END 2025-03-30 23:59 ==
LOC: CR 08:00
PROVIDERS: PCP Nurse Practitioner Family; Referring Provider Internal Medicine Cardiovascular Disease; Visit Provider Internal Medicine Cardiovascular Disease
DX: Z95.2 Presence of prosthetic heart valve (principal); Q23.0 Congenital stenosis of aortic valve; Q23.1 Congenital insufficiency of aortic valve; I25.10 Atherosclerotic heart disease of native coronary artery without angina pectoris; I10 Essential (primary) hypertension; E78.00 Pure hypercholesterolemia, unspecified
CPT/HCPCS: 93798

== ENCOUNTER 2025-04-30 08:00 | Outpatient (RCR) | payer OTHER, SELFPAY ==
[2025-03-09 11:04] VITALS: BMI 22.1
--- NOTE | 2025-04-06 07:17 | PCM.CR.ITP ---
Exercise - Initial Assessment Visit Session #:: 10 Physician Prescribed Exercise Modalities: Treadmill, Schwinn Airdyne AD-7 and SciFit Stepper Nutrition - Initial Assessment Weight Mgt (Other Care) Height: 6 ft 1 in Weight:: 173 lb 8 oz BMI: 22.8 Psychosocial - Initial Assess Referral to Behavioral Health PS - Interventions: Yes: Attend Stress Management Classes Exercise - 30-day Assessment Visit Date of Eval: 04/06/25 Session #:: 10 Physician Prescribed Exercise Modalities: Treadmill, Schwinn Airdyne AD-7 and SciFit Stepper Frequency: 3x/week for 12 weeks [36 sessions] Intensity: 60-80% of age predicted maximum heart rate reserve Duration: 30 - 45 minutes Current METSs:: 5.3 Target Heart Rate:: 101-117 Current RPE:: 11-12 Maximum Excercise HR:: 85 Resting Blood Pressure: 158/76 (Pt was late and rushed in.) Maximum Exercise Blood Pressure: 128/70 EKG Type: NSR Outcomes & Goals Goals:: Verbalizes understanding of THR, RPE & goal METS by session 6, Documents in home exercise log/reports 30 min aerobic 5 day/wk by DC, Demonstrates accurate pulse taking by DC and Other additional outcome/goals: see below Intervention & Plan Exercise Program Goals: Instruct on personal THR & RPE, Instruct on MET level & personal MET goal, Show patient to take own pulse /validate performance until accurate, Instruct on home exercise and Other additional plan/int Physical Activity Home Exercise Physical Activity - Home Exercise: Safe Exercise, Warm-up, Self-monitoring, Cool-Down, Home Exercise > 30 min Daily and Sitting Time <3 hours/daily Outcomes & Goals Outcomes/Goals: Demonstrates correct Warm-up/exercise Cool-Down (S3) if = 2.5 METs, Verbalizes symptoms of exercise intolerance by Session 3 (S3), Demonstrate safe equipment use (S3) & follows exercise prescrition (6) and Other: See below Intervention & Plan Plan/Intervention: Instruct warm-up & cool-down if exercising at > 2 METs, Instruct on symptoms of exercise intolerance & actions to take, Instruct & monitor on saf, Assess intial functional capacity & safety risk and Other See below 30-day Reassessments 30 day Reassessments:: Progressing Reassessment Notes & Comments:: Pt oriented to equipment. RPE explained to pt. Pt demonstrates understanding in his daily sessions. Exercise - 60-day Assessment Physician Prescribed Exercise Modalities: Treadmill, Schwinn Airdyne AD-7 and SciFit Stepper Exercise - 90-day Assessment Physician Prescribed Exercise Modalities: Treadmill, Schwinn Airdyne AD-7 and SciFit Stepper Exercise - Final/Discharge Physician Prescribed Exercise Modalities: Treadmill, Schwinn Airdyne AD-7 and SciFit Stepper Nutrition - 30-Day Assessment Program Goals Nutrition Program Goals Patient has diagnosis of Hyperlipidemia (ICD E78)?: Yes Visit Date of Eval: 04/06/25 Session #:: 10 Cholesterol/Lipids (Other Core Measures) Determine presence & major risk factors that modify LDL goal: Cigarette smoking, Hypertension or hypertensive medication, Low HDL cholesterol <40 mg/dL*, Family history of premature CHD in Male < 55 years: female <65 yearsFa and Age men > 45 years; women >/= 55 years Outcomes/Goals: Pt IDs own risk factors & lifestyle modifications by Session 10, Verbalizes symptoms of angina & response by session 3., Pt independently manages and Other Additional Outcomes/Goals: Intervention/Plan: Advocate for lipid panel cholesterol medication if applicable, Instruct on personal lipid levels & lipid goals/NCEP guidelines, Instruct on cholesterol and Other additional plan/int Referral to dietitian:: No (Nutrition survey score of 5. Declines wet process miller consult.) Diabetes (Other Core Measures) Diabetes Type: Not Applicable Weight Mgt (Other Care) Height: 6 ft 1 in Weight:: 173 lb 8 oz BMI: 22.8 Diagnosis Overweight/Obesity BMI> 30% ICD-10 E66: No Diagnosis High BMI/Morbid Obesity BMI> 35% ICD-10 Z68: No Outcomes/Goals: Pt sets, maintains & shows weight loss goal & trend during rehab and Other additional outcomes/goals Intervention/Plan: Instruct on ideal BMI & set weight loss goal w/patient, Assist pt to ID & incorporate diet changes for weight loss by S9, Refer to Structured Weight Loss program as appropriate, Encourage goal of using 250-300dcal per session for weight loss and Other additional plan/interventions 30 day Reassessments:: Progressing Reassessment Notes & Comments:: Pt is at a healthy weight. Pt is scheduled to attend nutrition classes with our wet process miller. Heart healthy low sodium diet encouraged. Healthy Eating Habits Will attend diet classes:: Yes Outcomes/Goals:: Consume diet rich in vegs,fruits,whole grain/high fiber,fish,lean meat, Limit sat/trans fats,cholesterol & added salts & sugars and Other additional outcome/goals: Intervention/Plan:: Assess current eating habits and Other Additional plan/interventions 30-day Reassessments:: Progressing Reassessment Notes & Comments:: Pt is scheduled to attend nutrition class. Low sodium heart healthy diet encouraged. Education Gave educational materials for:: Signs & symptoms of hypoglycemia, Signs & symptoms of hyperglycemia, Relate diabetes to coronary artery disease and Healthy eating Nutrition - 60-Day Assessment Weight Mgt (Other Care) Height: 6 ft 1 in Weight:: 173 lb 8 oz BMI: 22.8 Core - 30-Day Assessment Visit Date of Eval: 04/06/25 Session #:: 10 Medication Compliance Preventative Medication(s):: Aspirin, Statin/lipid, Beta jazlyn and Eliquis H/O mental health issues: depression, anxiety, or addiction?: No Doesn’t believe in the benefits of treatment?: No Believes medications are unnecessary or harmful?: No Has a concern about medication side effects?: No Expresses concern over the cost of medications?: No Outcomes/Goals: Verbalizes medications,desired effect & common side effects @ DC, Pt self-reports following medication regimen, Keeps card in wallet w/medications listed by DC and Other additional outcome/goals: Interventions/plans: Instruct on medication effects & side effects, Review medication list w/patient every two weeks, Instruct importance of taking meds as ordered & assist problem solving and Other additional 30-day Reassessments:: Progressing Reassessment Notes & Comments:: Pt is currently taking meds as prescribed. Pt to attend cardiac meds class. Tobacco Use Tobacco Use: Non-smoker Hypertension Hypertension Diagnosis:: Hypertension ICD-10 I10 Resting Blood Pressure:: 158/76 (Pt was late for class and rushed in. BP was much higher than normal for him.) [place] [employer] Hypertension Guidelines Peak Exercise Blood Pressure:: 128/70 Outcomes/Goals: Able to verbalize/achieve optimal blood pressure <130/80, Incorporates diet changes & exercise for blood pressure control by DC and Other additional outcomes/goals Interventions/plan: Instruct on optimal blood pressure, hypertension & medications, Instruct on effects of sodium, alcohol, stress, exercise &hypertension and Other additional plan/interventions 30 day Reassessments:: Progressing Reassessment Notes & Comments:: Pt's BP's are within AHA normal limits on some days. Low sodium heart healthy diet encouraged. Will continue to monitor and report to pt's physician if necessary. Tobacco Cessation Referral Smoking Cessation Referral:: No Individual Education/Counseling:: No Education Schedule Given:: Yes Psychosocial - 30-Day Assess VIsit Date of Eval: 04/06/25 Session #:: 10 Self-reported stressors Other/Comments:: Recent Illness (Pt has a diagnosis of irritability. Pt seems down due to recent illness. Counseling offered multiple times. Pt declines at this time. Will continue to monitor pt.) Psychosocial Test Tool Used:: PHQ-9 Questionnaire phq-9 Severity See PHQ-9 Score: 16 Referral to Behavioral Health PS - Interventions: Yes: Attend Stress Management Classes Outcomes/Goals: See list Psychosocial Outcomes/Goals:: ID's personal stressors & 2 strategies to manage stress by discharge and Other Additional outcome/goals: Intervention/Plan: See List Interventions/Plan:: Assess stressors,coping strategies & signs of derpression on admission, Instruct/assist pt to develop coping & personal stress Mgt strategies, Refer to Behavioral Health if appropriate, Refer to Physician if appropriate, Instruct patient to recognize signs & symptoms of depression, Instruct patient to recog and Other additional plan/intervention 30-day Reassessments: 30 day Reassessments:: Progressing Reassessment Notes & Comments:: Pt to attend stress management class. Will reassess every 30 days. Counseling offered and declined at this time. Psychosocial - 60-Day Assess Referral to Behavioral Health PS - Interventions: Yes: Attend Stress Management Classes Outcomes/Goals: See list Psychosocial Outcomes/Goals:: ID's personal stressors & 2 strategies to manage stress by discharge and Other Additional outcome/goals: Psychosocial - 90-Day Assess Referral to Behavioral Health PS - Interventions: Yes: Attend Stress Management Classes Psychosocial - Final Assessmen Referral to Behavioral Health PS - Interventions: Yes: Attend Stress Management Classes Nutrition - 90-Day Assessment Weight Mgt (Other Care) Height: 6 ft 1 in Weight:: 173 lb 8 oz BMI: 22.8 Nutrition - Final Assessment Weight Mgt (Other Care) Height: 6 ft 1 in Weight:: 173 lb 8 oz BMI: 22.8
[2025-04-06 07:21] VITALS: BP 158/76
[2025-04-06 07:31] VITALS: BP 158/76; BMI 22.8
== END 2025-04-30 23:59 ==
LOC: CR 08:00
PROVIDERS: PCP Nurse Practitioner Family; Referring Provider Internal Medicine Cardiovascular Disease; Visit Provider Internal Medicine Cardiovascular Disease
DX: Z95.2 Presence of prosthetic heart valve (principal); Q23.0 Congenital stenosis of aortic valve; Q23.1 Congenital insufficiency of aortic valve; I25.10 Atherosclerotic heart disease of native coronary artery without angina pectoris; I10 Essential (primary) hypertension; E78.00 Pure hypercholesterolemia, unspecified
CPT/HCPCS: 93798

== ENCOUNTER → 2025-05-12 | Outpatient (CLI) | payer OTHER, SELFPAY ==
[2025-05-05 08:25] VITALS: BMI 23.3
--- NOTE | 2025-05-12 10:55 | RAD_ITS ---
PROCEDURE: CHEST PA AND LATERAL 05/12/2025 REASON FOR EXAM: MONITORING ON AMIODARONE TECHNIQUE: Procedure Code: RADCXR Modality: DX Procedure: CHEST PA AND LATERAL COMPARISON: 11/04/2024 FINDINGS: Mild increased interstitial markings are noted, perhaps slightly progressed compared with the previous study. Sternotomy wires are no longer appreciated. The patient has likely undergone CABG and/or prosthetic heart valve placement. No pneumothorax or pleural effusion. No focal airspace consolidation. The cardiomediastinal silhouette is unremarkable. The osseous structures are unremarkable. RAD/Chest PA and Lateral IMPRESSION: Slight increase in interstitial markings compared with the previous study, whic h could reflect increasing fibrotic change. Consider CT. Reading Location: [id number]
[2025-05-12 11:25] LABS: Hematocrit 44.5 % (40-54); Hemoglobin 14.4 g/dL (13.0-16.5); Immature Granulocytes Count 0.030 X10^3/uL (0.0-0.0); Mean Corp Hgb Conc 32.4 g/dL (32-36); Mean Corpuscular Volume 92.7 fL (80-94); Mean Platelet Vol. 9.3 fl (6.2-12.0); NRBC Flagged by Analyzer 0 % (0-5); Platelet Count 167 K/mm3 (150-450); RBC Distribution Width CV 15.4 % (11.6-14.6); RBC Distribution Width SD 52.6 fl (35.1-43.9); Red Blood Count 4.80 M/mm3 (4.6-6.2); White Blood Count 8.1 K/mm3 (4.4-11.0)
[2025-05-12 11:59] LABS: AST(SGOT) 28 U/L (<=37); Alanine Aminotransfer ALT/SGPT 29 U/L (<=46); Albumin, Serum 4.3 g/dL (3.4-4.8); Alkaline Phosphatase 103 U/L (40-129); Anion Gap 9 (5-15); BUN 17 mg/dL (4-19); BUN/Creat Ratio 17.0 RATIO (10-20); Calcium,Total 9.5 mg/dL (7.6-11.0); Carbon Dioxide 27.1 mmol/L (21.0-32.0); Chloride 104 mmol/L (98-108); Cholesterol 128 mg/dL (<=200); Globulin 2.8 g/dL (2.2-4.2); Glucose 106 mg/dL (70-99); Low Density Lipoprotein Calc. 56 mg/dL; Potassium 4.9 mmol/L (3.3-5.1); Triglycerides 134 mg/dL; Very Low Density Lipoprotein 27 mg/dL (5-40); cholesterol:hdl ratio screen 2.61
== END | disposition home or self-care (01) ==
LOC: RAD 10:51
PROVIDERS: PCP Nurse Practitioner Family; Referring Provider Student in an Organized Health Care Education/Training Program; Visit Provider Student in an Organized Health Care Education/Training Program
DX: Z51.81 Encounter for therapeutic drug level monitoring (principal); Z79.899 Other long term (current) drug therapy; I25.10 Atherosclerotic heart disease of native coronary artery without angina pectoris; E78.00 Pure hypercholesterolemia, unspecified
CPT/HCPCS: 36415; 71046; 80053; 80061; 84443; 85025

== ENCOUNTER 2025-05-26 08:00 | Outpatient (RCR) | payer OTHER, SELFPAY ==
[2025-04-06 07:31] VITALS: BMI 22.8
--- NOTE | 2025-05-05 08:10 | PCM.CR.ITP ---
Exercise - Initial Assessment Physician Prescribed Exercise Modalities: Treadmill, Schwinn Airdyne AD-7 and SciFit Stepper Nutrition - Initial Assessment Weight Mgt (Other Care) Height: 6 ft 1 in Weight:: 176 lb 8 oz BMI: 23.3 Core - Initial Assessment Hypertension Resting Blood Pressure:: 140/70 [place] [employer] Hypertension Guidelines Psychosocial - Initial Assess Referral to Behavioral Health PS - Interventions: Yes: Attend Stress Management Classes Exercise - 30-day Assessment Physician Prescribed Exercise Modalities: Treadmill, Schwinn Airdyne AD-7 and SciFit Stepper Exercise - 60-day Assessment Visit Date of Eval: 05/05/25 Session #:: 23 Physician Prescribed Exercise Modalities: Treadmill, Schwinn Airdyne AD-7 and SciFit Stepper Frequency: 3x/week for 12 weeks [36 sessions] Intensity: 60-80% of age predicted maximum heart rate reserve Duration: 30 - 45 minutes Current METSs:: 7.2 Target Heart Rate:: 101-117 Current RPE:: 12-13 Maximum Excercise HR:: 100 Resting Blood Pressure: 118/72 Maximum Exercise Blood Pressure: 140/70 EKG Type: NSR to ST Outcomes & Goals Goals:: Verbalizes understanding of THR, RPE & goal METS by session 6, Documents in home exercise log/reports 30 min aerobic 5 day/wk by DC, Demonstrates accurate pulse taking by DC and Other additional outcome/goals: see below Intervention & Plan Exercise Program Goals: Instruct on personal THR & RPE, Instruct on MET level & personal MET goal, Show patient to take own pulse /validate performance until accurate, Instruct on home exercise and Other additional plan/int Physical Activity Home Exercise Physical Activity - Home Exercise: Safe Exercise, Warm-up, Self-monitoring, Cool-Down, Home Exercise > 30 min Daily and Sitting Time <3 hours/daily Outcomes & Goals Outcomes/Goals: Demonstrates correct Warm-up/exercise Cool-Down (S3) if = 2.5 METs, Verbalizes symptoms of exercise intolerance by Session 3 (S3), Demonstrate safe equipment use (S3) & follows exercise prescrition (6) and Other: See below Intervention & Plan Plan/Intervention: Instruct warm-up & cool-down if exercising at > 2 METs, Instruct on symptoms of exercise intolerance & actions to take, Instruct & monitor on saf, Assess intial functional capacity & safety risk and Other See below 30-day Reassessments 30 day Reassessments:: Progressing Reassessment Notes & Comments:: Proper warm up and cool down demonstrated and explained to pt. Pt is able to return demonstration in their daily sessions. Exercise - 90-day Assessment Physician Prescribed Exercise Modalities: Treadmill, Schwinn Airdyne AD-7 and SciFit Stepper Exercise - Final/Discharge Physician Prescribed Exercise Modalities: Treadmill, Schwinn Airdyne AD-7 and SciFit Stepper Nutrition - 30-Day Assessment Weight Mgt (Other Care) Height: 6 ft 1 in Weight:: 176 lb 8 oz BMI: 23.3 Nutrition - 60-Day Assessment Program Goals Nutrition Program Goals Patient has diagnosis of Hyperlipidemia (ICD E78)?: Yes Visit Date of Eval: 05/05/25 Session #:: 23 Cholesterol/Lipids (Other Core Measures) Determine presence & major risk factors that modify LDL goal: Cigarette smoking, Hypertension or hypertensive medication, Low HDL cholesterol <40 mg/dL*, Family history of premature CHD in Male < 55 years: female <65 yearsFa and Age men > 45 years; women >/= 55 years Outcomes/Goals: Pt IDs own risk factors & lifestyle modifications by Session 10, Verbalizes symptoms of angina & response by session 3., Pt independently manages and Other Additional Outcomes/Goals: Intervention/Plan: Advocate for lipid panel cholesterol medication if applicable, Instruct on personal lipid levels & lipid goals/NCEP guidelines, Instruct on cholesterol and Other additional plan/int Referral to dietitian:: No (Nutrition survey score of 5. Pt declines referral.) 30-day Reassessments:: Progressing Reassessment Notes & Comments:: Pt encouraged to getting another lipid panel lab draw. Pt taking statin meds as prescribed. Diabetes (Other Core Measures) Diabetes Type: Not Applicable Weight Mgt (Other Care) Height: 6 ft 1 in Weight:: 176 lb 8 oz BMI: 23.3 Diagnosis Overweight/Obesity BMI> 30% ICD-10 E66: No Diagnosis High BMI/Morbid Obesity BMI> 35% ICD-10 Z68: No Outcomes/Goals: Pt sets, maintains & shows weight loss goal & trend during rehab and Other additional outcomes/goals Intervention/Plan: Instruct on ideal BMI & set weight loss goal w/patient, Assist pt to ID & incorporate diet changes for weight loss by S9, Refer to Structured Weight Loss program as appropriate, Encourage goal of using 250-300dcal per session for weight loss and Other additional plan/interventions Healthy Eating Habits Will attend diet classes:: Yes Outcomes/Goals:: Consume diet rich in vegs,fruits,whole grain/high fiber,fish,lean meat, Limit sat/trans fats,cholesterol & added salts & sugars and Other additional outcome/goals: Intervention/Plan:: Assess current eating habits and Other Additional plan/interventions 30-day Reassessments:: Progressing Reassessment Notes & Comments:: Pt is scheduled to attend nutrition classes. Low sodium heart healthy diet encouraged. Education Gave educational materials for:: Signs & symptoms of hypoglycemia, Signs & symptoms of hyperglycemia, Relate diabetes to coronary artery disease and Healthy eating Core - Final Assessment Hypertension Resting Blood Pressure:: 140/70 [place] [employer] Hypertension Guidelines Core - 60-Day Assessment Visit Date of Eval: 05/05/25 Session #:: 23 Medication Compliance Preventative Medication(s):: Aspirin, Statin/lipid, Beta jazlyn and Eliquis H/O mental health issues: depression, anxiety, or addiction?: No Doesn’t believe in the benefits of treatment?: No Believes medications are unnecessary or harmful?: No Has a concern about medication side effects?: No Expresses concern over the cost of medications?: No Outcomes/Goals: Verbalizes medications,desired effect & common side effects @ DC, Pt self-reports following medication regimen, Keeps card in wallet w/medications listed by DC and Other additional outcome/goals: Interventions/plans: Instruct on medication effects & side effects, Review medication list w/patient every two weeks, Instruct importance of taking meds as ordered & assist problem solving and Other additional Tobacco Use Tobacco Use: Non-smoker Hypertension Hypertension Diagnosis:: Hypertension ICD-10 I10 Resting Blood Pressure:: 118/72 Resting Blood Pressure:: 140/70 [place] [employer] Hypertension Guidelines Peak Exercise Blood Pressure:: 140/70 Outcomes/Goals: Able to verbalize/achieve optimal blood pressure <130/80, Incorporates diet changes & exercise for blood pressure control by DC and Other additional outcomes/goals Interventions/plan: Instruct on optimal blood pressure, hypertension & medications, Instruct on effects of sodium, alcohol, stress, exercise &hypertension and Other additional plan/interventions 30 day Reassessments:: Progressing Reassessment Notes & Comments:: Pt's BP's are within AHA normal limits on some days. Will continue to monitor and report to pt's physician if necessary. Tobacco Cessation Referral Smoking Cessation Referral:: No Individual Education/Counseling:: No Education Schedule Given:: Yes Psychosocial - 30-Day Assess Referral to Behavioral Health PS - Interventions: Yes: Attend Stress Management Classes Outcomes/Goals: See list Psychosocial Outcomes/Goals:: ID's personal stressors & 2 strategies to manage stress by discharge and Other Additional outcome/goals: Psychosocial - 60-Day Assess VIsit Date of Eval: 05/05/25 Session #:: 23 Self-reported stressors Other/Comments:: Recent Illness (Pt has a diagnosis of irritability. Pt seems down due to recent illness. Counseling offered multiple times. Pt declines. Will continue to monitor.) Psychosocial Test Tool Used:: [employer] [place] QOL Cardiac and PHQ-9 Questionnaire phq-9 Severity See PHQ-9 Score: 16 Referral to Behavioral Health PS - Interventions: Yes: Attend Stress Management Classes Outcomes/Goals: See list Psychosocial Outcomes/Goals:: ID's personal stressors & 2 strategies to manage stress by discharge and Other Additional outcome/goals: Intervention/Plan: See List Interventions/Plan:: Assess stressors,coping strategies & signs of derpression on admission, Instruct/assist pt to develop coping & personal stress Mgt strategies, Refer to Behavioral Health if appropriate, Refer to Physician if appropriate, Instruct patient to recognize signs & symptoms of depression, Instruct patient to recog and Other additional plan/intervention 30-day Reassessments: 30 day Reassessments:: Progressing Reassessment Notes & Comments:: Pt to attend stress management class. Will reassess every 30 days. Counseling offered. Psychosocial - 90-Day Assess Referral to Behavioral Health PS - Interventions: Yes: Attend Stress Management Classes Psychosocial - Final Assessmen Referral to Behavioral Health PS - Interventions: Yes: Attend Stress Management Classes Nutrition - 90-Day Assessment Weight Mgt (Other Care) Height: 6 ft 1 in Weight:: 176 lb 8 oz BMI: 23.3 Nutrition - Final Assessment Weight Mgt (Other Care) Height: 6 ft 1 in Weight:: 176 lb 8 oz BMI: 23.3
[2025-05-05 08:15] VITALS: BP 118/72
[2025-05-05 08:25] VITALS: BP 118/72; BP 140/70; BMI 23.3
== END 2025-05-30 23:59 ==
LOC: CR 08:00
PROVIDERS: PCP Nurse Practitioner Family; Referring Provider Internal Medicine Cardiovascular Disease; Visit Provider Internal Medicine Cardiovascular Disease
DX: Z95.2 Presence of prosthetic heart valve (principal); Q23.0 Congenital stenosis of aortic valve; Q23.1 Congenital insufficiency of aortic valve; I25.10 Atherosclerotic heart disease of native coronary artery without angina pectoris; I10 Essential (primary) hypertension; E78.00 Pure hypercholesterolemia, unspecified
CPT/HCPCS: 93798

== ENCOUNTER 2025-06-07 08:00 | Outpatient (RCR) | payer OTHER, SELFPAY ==
[2025-05-05 08:25] VITALS: BMI 23.3
--- NOTE | 2025-06-01 09:12 | PCM.CR.ITP ---
Exercise - Initial Assessment Physician Prescribed Exercise Modalities: Treadmill, Schwinn Airdyne AD-7 and SciFit Stepper Nutrition - Initial Assessment Weight Mgt (Other Care) Height: 6 ft 1 in Weight:: 181 lb BMI: 23.8 Psychosocial - Initial Assess Referral to Behavioral Health PS - Interventions: Yes: Attend Stress Management Classes (Pt has denied any counseling) Exercise - 30-day Assessment Physician Prescribed Exercise Modalities: Treadmill, Schwinn Airdyne AD-7 and SciFit Stepper Exercise - 60-day Assessment Physician Prescribed Exercise Modalities: Treadmill, Schwinn Airdyne AD-7 and SciFit Stepper Exercise - 90-day Assessment Visit Date of Eval: 06/01/25 Session #:: 33 Physician Prescribed Exercise Modalities: Treadmill, Schwinn Airdyne AD-7 and SciFit Stepper Frequency: 3x/week for 12 weeks [36 sessions] Intensity: 60-80% of age predicted maximum heart rate reserve Duration: 30 - 45 minutes Current METSs:: 8.1 Target Heart Rate:: 101-125 Current RPE:: 11-13 Maximum Excercise HR:: 120 Resting Blood Pressure: 132/80 Maximum Exercise Blood Pressure: 152/84 EKG Type: NST-ST with occas PAC Outcomes & Goals Goals:: Verbalizes understanding of THR, RPE & goal METS by session 6, Documents in home exercise log/reports 30 min aerobic 5 day/wk by DC, Demonstrates accurate pulse taking by DC and Other additional outcome/goals: see below Intervention & Plan Exercise Program Goals: Instruct on personal THR & RPE, Instruct on MET level & personal MET goal, Show patient to take own pulse /validate performance until accurate, Instruct on home exercise and Other additional plan/int 30-day Reassessments 30 day Reassessments:: Progressing Reassessment Notes & Comments:: Pt is progressing in his exercise goals. He demonstrates proper usage of RPE. He utilizes proper warm up and cool down with exercise. Physical Activity Home Exercise Physical Activity - Home Exercise: Safe Exercise, Warm-up, Self-monitoring, Cool-Down, Home Exercise > 30 min Daily and Sitting Time <3 hours/daily Outcomes & Goals Outcomes/Goals: Demonstrates correct Warm-up/exercise Cool-Down (S3) if = 2.5 METs, Verbalizes symptoms of exercise intolerance by Session 3 (S3), Demonstrate safe equipment use (S3) & follows exercise prescrition (6) and Other: See below Intervention & Plan Plan/Intervention: Instruct warm-up & cool-down if exercising at > 2 METs, Instruct on symptoms of exercise intolerance & actions to take, Instruct & monitor on saf, Assess intial functional capacity & safety risk and Other See below 30-day Reassessments 30 day Reassessments:: Progressing Reassessment Notes & Comments:: Pt is progressing in his exercise goals. He demonstrates proper usage of RPE. He utilizes proper warm up and cool down with exercise. Exercise - Final/Discharge Physician Prescribed Exercise Modalities: Treadmill, Schwinn Airdyne AD-7 and SciFit Stepper Nutrition - 30-Day Assessment Weight Mgt (Other Care) Height: 6 ft 1 in Weight:: 181 lb BMI: 23.8 Nutrition - 60-Day Assessment Weight Mgt (Other Care) Height: 6 ft 1 in Weight:: 181 lb BMI: 23.8 Core - 30-Day Assessment Hypertension [place] [employer] Hypertension Guidelines Reassessment Notes & Comments:: BP's are within AHA normal limits on most days, Will continue to monitor and report to physician as necessary. Core - Final Assessment Hypertension [place] [employer] Hypertension Guidelines Reassessment Notes & Comments:: BP's are within AHA normal limits on most days, Will continue to monitor and report to physician as necessary. Core - 90 Day Assessment Visit Date of Eval: 06/01/25 Session #:: 33 Medication Compliance Preventative Medication(s):: Aspirin, Statin/lipid, Beta jazlyn and Eliquis H/O mental health issues: depression, anxiety, or addiction?: No Doesn?t believe in the benefits of treatment?: No Believes medications are unnecessary or harmful?: No Has a concern about medication side effects?: No Expresses concern over the cost of medications?: No Outcomes/Goals: Verbalizes medications,desired effect & common side effects @ DC, Pt self-reports following medication regimen, Keeps card in wallet w/medications listed by DC and Other additional outcome/goals: Interventions/plans: Instruct on medication effects & side effects, Review medication list w/patient every two weeks, Instruct importance of taking meds as ordered & assist problem solving and Other additional 30-day Reassessments:: Progressing Reassessment Notes & Comments:: Pt is currently taking medications as prescribed. Pt has attended cardiac med class. Tobacco Use Tobacco Use: Non-smoker Hypertension Hypertension Diagnosis:: Hypertension ICD-10 I10 Resting Blood Pressure:: 132/80 [place] [employer] Hypertension Guidelines Peak Exercise Blood Pressure:: 152/84 Outcomes/Goals: Able to verbalize/achieve optimal blood pressure <130/80, Incorporates diet changes & exercise for blood pressure control by DC and Other additional outcomes/goals Interventions/plan: Instruct on optimal blood pressure, hypertension & medications, Instruct on effects of sodium, alcohol, stress, exercise &hypertension and Other additional plan/interventions 30 day Reassessments:: Progressing Reassessment Notes & Comments:: BP's are within AHA normal limits on most days, Will continue to monitor and report to physician as necessary. Tobacco Cessation Referral Education Schedule Given:: Yes Psychosocial - 30-Day Assess Referral to Behavioral Health PS - Interventions: Yes: Attend Stress Management Classes (Pt has denied any counseling) Psychosocial - 60-Day Assess Referral to Behavioral Health PS - Interventions: Yes: Attend Stress Management Classes (Pt has denied any counseling) Psychosocial - 90-Day Assess VIsit Date of Eval: 06/01/25 Session #:: 33 History of previous Mental disease:: No Self-reported stressors Other/Comments:: Recent Illness (Pt has history of irritability. Pt's mood has been stable. Pt declined counselling. Will continue to monitor) Psychosocial Test Tool Used:: [employer] QOL Cardiac and PHQ-9 Questionnaire Self-reported stress:: recent illness phq-9 Severity See PHQ-9 Score: 16 Referral to Behavioral Health PS - Interventions: Yes: Attend Stress Management Classes (Pt has denied any counseling) Outcomes/Goals: See list Psychosocial Outcomes/Goals:: ID's personal stressors & 2 strategies to manage stress by discharge and Other Additional outcome/goals: Intervention/Plan: See List Interventions/Plan:: Assess stressors,coping strategies & signs of derpression on admission, Instruct/assist pt to develop coping & personal stress Mgt strategies, Refer to Behavioral Health if appropriate, Refer to Physician if appropriate, Instruct patient to recognize signs & symptoms of depression, Instruct patient to recog and Other additional plan/intervention 30-day Reassessments: 30 day Reassessments:: Progressing Reassessment Notes & Comments:: Pt has attended stress management class. Pt offered counseling and has declined. Will continue to monitor and assess. Psychosocial - Final Assessmen Referral to Behavioral Health PS - Interventions: Yes: Attend Stress Management Classes (Pt has denied any counseling) Nutrition - 90-Day Assessment Program Goals Nutrition Program Goals Patient has diagnosis of Hyperlipidemia (ICD E78)?: Yes Visit Date of Eval: 06/01/25 Session #:: 33 (nutrition score of 4) Cholesterol/Lipids (Other Core Measures) Determine presence & major risk factors that modify LDL goal: Cigarette smoking, Hypertension or hypertensive medication, Low HDL cholesterol <40 mg/dL*, Family history of premature CHD in Male < 55 years: female <65 yearsFa and Age men > 45 years; women >/= 55 years Outcomes/Goals: Pt IDs own risk factors & lifestyle modifications by Session 10, Verbalizes symptoms of angina & response by session 3., Pt independently manages and Other Additional Outcomes/Goals: Intervention/Plan: Advocate for lipid panel cholesterol medication if applicable, Instruct on personal lipid levels & lipid goals/NCEP guidelines, Instruct on cholesterol and Other additional plan/int 30-day Reassessments:: Progressing Reassessment Notes & Comments:: Pt has attended class with hospital oceanographic meteorologist. Pt understands the benefits of a heart healthy low sodium diet. Diabetes (Other Core Measures) Diabetes Type: Not Applicable Weight Mgt (Other Care) Height: 6 ft 1 in Weight:: 181 lb BMI: 23.8 Diagnosis Overweight/Obesity BMI> 30% ICD-10 E66: No Diagnosis High BMI/Morbid Obesity BMI> 35% ICD-10 Z68: No Outcomes/Goals: Pt sets, maintains & shows weight loss goal & trend during rehab and Other additional outcomes/goals Intervention/Plan: Instruct on ideal BMI & set weight loss goal w/patient, Assist pt to ID & incorporate diet changes for weight loss by S9, Refer to Structured Weight Loss program as appropriate, Encourage goal of using 250-300dcal per session for weight loss and Other additional plan/interventions 30 day Reassessments:: Progressing Reassessment Notes & Comments:: Pt is at a healthy weight. He has been given tools to maintain a healthy diet. Healthy Eating Habits Will attend diet classes:: Yes Outcomes/Goals:: Consume diet rich in vegs,fruits,whole grain/high fiber,fish,lean meat, Limit sat/trans fats,cholesterol & added salts & sugars and Other additional outcome/goals: Intervention/Plan:: Assess current eating habits and Other Additional plan/interventions 30-day Reassessments:: Progressing Reassessment Notes & Comments:: Pt has attended classes with hospital oceanographic meteorologist. Heart healthy diet encouraged. Education Gave educational materials for:: Signs & symptoms of hypoglycemia, Signs & symptoms of hyperglycemia, Relate diabetes to coronary artery disease and Healthy eating Nutrition - Final Assessment Weight Mgt (Other Care) Height: 6 ft 1 in Weight:: 181 lb BMI: 23.8
[2025-06-01 09:20] VITALS: BP 132/80
[2025-06-01 09:37] VITALS: BP 132/80; BMI 23.8
== END 2025-06-30 23:59 ==
LOC: CR 08:00
PROVIDERS: PCP Nurse Practitioner Family; Referring Provider Internal Medicine Cardiovascular Disease; Visit Provider Internal Medicine Cardiovascular Disease
DX: Z95.2 Presence of prosthetic heart valve (principal); Q23.0 Congenital stenosis of aortic valve; Q23.1 Congenital insufficiency of aortic valve; I25.10 Atherosclerotic heart disease of native coronary artery without angina pectoris; I10 Essential (primary) hypertension; E78.00 Pure hypercholesterolemia, unspecified
CPT/HCPCS: 93798

== ENCOUNTER 2025-06-29 08:00 | Outpatient (RCR) | payer OTHER, SELFPAY ==
[2025-06-01 09:37] VITALS: BMI 23.8
--- NOTE | 2025-06-22 11:10 | PCM.CR.ITP ---
Exercise - Initial Assessment Physician Prescribed Exercise Modalities: Treadmill, Schwinn Airdyne AD-7 and SciFit Stepper Target Heart Rate:: 101-125 Nutrition - Initial Assessment Program Goals Nutrition Program Goals Patient has diagnosis of Hyperlipidemia (ICD E78)?: Yes Weight Mgt (Other Care) Height: 6 ft 1 in Weight:: 183 lb BMI: 24.1 Core - Initial Assessment Hypertension Resting Blood Pressure:: 110/70 [employer] Hypertension Guidelines Psychosocial - Initial Assess Psychosocial Test phq-9 Severity See PHQ-9 Score: 11 (Score has improved from a 16 at intake.) Referral to Behavioral Health PS - Interventions: Yes: Attend Stress Management Classes Exercise - 30-day Assessment Physician Prescribed Exercise Modalities: Treadmill, Schwinn Airdyne AD-7 and SciFit Stepper Exercise - 60-day Assessment Physician Prescribed Exercise Modalities: Treadmill, Schwinn Airdyne AD-7 and SciFit Stepper Exercise - 90-day Assessment Physician Prescribed Exercise Modalities: Treadmill, Schwinn Airdyne AD-7 and SciFit Stepper Exercise - Final/Discharge Visit Date of Eval: 06/22/25 Session #:: 36 Physician Prescribed Exercise Modalities: Treadmill, Schwinn Airdyne AD-7 and SciFit Stepper Frequency: 3x/week for 12 weeks [36 sessions] Intensity: 60-80% of age predicted maximum heart rate reserve Duration: 30 - 45 minutes Current METSs:: 8.1 Target Heart Rate:: 101-125 Current RPE:: 12-13 Maximum Heart Rate:: 133 Resting Blood Pressure: 110/70 Maximum Exercise Blood Pressure: 150/84 EKG Type: NSR to ST w/occas PAC Outcomes & Goals Goals:: Verbalizes understanding of THR, RPE & goal METS by session 6, Documents in home exercise log/reports 30 min aerobic 5 day/wk by DC, Demonstrates accurate pulse taking by DC and Other additional outcome/goals: see below Intervention & Plan Exercise Program Goals: Instruct on personal THR & RPE, Instruct on MET level & personal MET goal, Show patient to take own pulse /validate performance until accurate, Instruct on home exercise and Other additional plan/int Physical Activity Home Exercise Physical Activity - Home Exercise: Safe Exercise, Warm-up, Self-monitoring, Cool-Down, Home Exercise > 30 min Daily and Sitting Time <3 hours/daily Outcomes & Goals Outcomes/Goals: Demonstrates correct Warm-up/exercise Cool-Down (S3) if = 2.5 METs, Verbalizes symptoms of exercise intolerance by Session 3 (S3), Demonstrate safe equipment use (S3) & follows exercise prescrition (6) and Other: See below Intervention & Plan Plan/Intervention: Instruct warm-up & cool-down if exercising at > 2 METs, Instruct on symptoms of exercise intolerance & actions to take, Instruct & monitor on saf, Assess intial functional capacity & safety risk and Other See below 30-day Reassessments 30 day Reassessments:: Met Reassessment Notes & Comments:: Pt has met his exercise goals. Pt was working at 8.1 METS. Pt will be given his exercise prescription as well as community resources to continue his exercise. Pt understands the importance of warming up and cooling down. Pt also understands symptoms of exercise intolerance and how to exercise safely. Pt is attending [facility]. Nutrition - 30-Day Assessment Weight Mgt (Other Care) Height: 6 ft 1 in Weight:: 183 lb BMI: 24.1 Nutrition - 60-Day Assessment Weight Mgt (Other Care) Height: 6 ft 1 in Weight:: 183 lb BMI: 24.1 Core - 30-Day Assessment Hypertension [employer] Hypertension Guidelines Reassessment Notes & Comments:: Pt's BP's are within AHA normal limits. Pt taking antihypertensive meds as prescribed, pt instructed on optimal BP and effects of sodium on BP. Core - Final Assessment Visit Date of Eval: 06/22/25 Session #:: 36 Medication Compliance Preventative Medication(s):: Aspirin, Statin/lipid, Beta jazlyn and Eliquis H/O mental health issues: depression, anxiety, or addiction?: No Doesn?t believe in the benefits of treatment?: No Believes medications are unnecessary or harmful?: No Has a concern about medication side effects?: No Expresses concern over the cost of medications?: No Outcomes/Goals: Verbalizes medications,desired effect & common side effects @ DC, Pt self-reports following medication regimen, Keeps card in wallet w/medications listed by DC and Other additional outcome/goals: Interventions/plans: Instruct on medication effects & side effects, Review medication list w/patient every two weeks, Instruct importance of taking meds as ordered & assist problem solving and Other additional Tobacco Use Tobacco Use: Non-smoker Hypertension Hypertension Diagnosis:: Hypertension ICD-10 I10 Resting Blood Pressure:: 110/70 [employer] Hypertension Guidelines Peak Exercise Blood Pressure:: 150/84 Outcomes/Goals: Able to verbalize/achieve optimal blood pressure <130/80, Incorporates diet changes & exercise for blood pressure control by DC and Other additional outcomes/goals Interventions/plan: Instruct on optimal blood pressure, hypertension & medications, Instruct on effects of sodium, alcohol, stress, exercise &hypertension and Other additional plan/interventions 30 day Reassessments:: Met Reassessment Notes & Comments:: Pt's BP's are within AHA normal limits. Pt taking antihypertensive meds as prescribed, pt instructed on optimal BP and effects of sodium on BP. Core - 90 Day Assessment Hypertension [employer] Hypertension Guidelines Reassessment Notes & Comments:: Pt's BP's are within AHA normal limits. Pt taking antihypertensive meds as prescribed, pt instructed on optimal BP and effects of sodium on BP. Core - 60-Day Assessment Hypertension Resting Blood Pressure:: 110/70 [employer] Hypertension Guidelines Psychosocial - 30-Day Assess Referral to Behavioral Health PS - Interventions: Yes: Attend Stress Management Classes Psychosocial - 60-Day Assess Referral to Behavioral Health PS - Interventions: Yes: Attend Stress Management Classes Psychosocial - 90-Day Assess Referral to Behavioral Health PS - Interventions: Yes: Attend Stress Management Classes Psychosocial - Final Assessmen VIsit Date of Eval: 06/22/25 History of previous Mental disease:: No (Pt with a history of irritability. Pt denies need for counseling.) Psychosocial Test Tool Used:: [employer] QOL Cardiac and PHQ-9 Questionnaire phq-9 Severity See PHQ-9 Score: 11 (Score has improved from a 16 at intake.) Referral to Behavioral Health PS - Interventions: Yes: Attend Stress Management Classes Outcomes/Goals: See list Psychosocial Outcomes/Goals:: ID's personal stressors & 2 strategies to manage stress by discharge and Other Additional outcome/goals: Intervention/Plan: See List Interventions/Plan:: Assess stressors,coping strategies & signs of derpression on admission, Instruct/assist pt to develop coping & personal stress Mgt strategies, Refer to Behavioral Health if appropriate, Refer to Physician if appropriate, Instruct patient to recognize signs & symptoms of depression, Instruct patient to recog and Other additional plan/intervention 30-day Reassessments: 30 day Reassessments:: Met Reassessment Notes & Comments:: Pt denies any psychosocial issues at this time. Pt has attended stress management classes. Pt's PHQ9 score has improved from a 16 at intake to an 11 at discharge. Nutrition - 90-Day Assessment Weight Mgt (Other Care) Height: 6 ft 1 in Weight:: 183 lb BMI: 24.1 Nutrition - Final Assessment Program Goals Patient has diagnosis of Hyperlipidemia (ICD E78)?: Yes Visit Date of Assessment:: 06/22/25 Session #:: 36 (Nutrition score of 4) Cholesterol/Lipids (Other Core Measures) Determine presence & major risk factors that modify LDL goal: Cigarette smoking, Hypertension or hypertensive medication, Low HDL cholesterol <40 mg/dL*, Family history of premature CHD in Male < 55 years: female <65 yearsFa and Age men > 45 years; women >/= 55 years Outcomes/Goals: Pt IDs own risk factors & lifestyle modifications by Session 10, Verbalizes symptoms of angina & response by session 3., Pt independently manages and Other Additional Outcomes/Goals: Intervention/Plan: Advocate for lipid panel cholesterol medication if applicable, Instruct on personal lipid levels & lipid goals/NCEP guidelines, Instruct on cholesterol and Other additional plan/int Diabetes (Other Core Measures) Diabetes Type: Not Applicable Weight Mgt (Other Care) Height: 6 ft 1 in Weight:: 183 lb BMI: 24.1 Diagnosis Overweight/Obesity BMI> 30% ICD-10 E66: No Diagnosis High BMI/Morbid Obesity BMI> 35% ICD-10 Z68: No Outcomes/Goals: Pt sets, maintains & shows weight loss goal & trend during rehab and Other additional outcomes/goals Intervention/Plan: Instruct on ideal BMI & set weight loss goal w/patient, Assist pt to ID & incorporate diet changes for weight loss by S9, Refer to Structured Weight Loss program as appropriate, Encourage goal of using 250-300dcal per session for weight loss and Other additional plan/interventions Healthy Eating Habits Will attend diet classes:: Yes Outcomes/Goals:: Consume diet rich in vegs,fruits,whole grain/high fiber,fish,lean meat, Limit sat/trans fats,cholesterol & added salts & sugars and Other additional outcome/goals: Intervention/Plan:: Assess current eating habits and Other Additional plan/interventions 30-day Reassessments:: Met Reassessment Notes & Comments:: Pt is at a healthy weight. 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 Heart healthy low sodium diet encouraged. Pt has been given the tools to maintain a healthy diet. Education Gave educational materials for:: Signs & symptoms of hypoglycemia, Signs & symptoms of hyperglycemia, Relate diabetes to coronary artery disease and Healthy eating
[2025-06-22 11:22] VITALS: BP 110/70; BMI 24.1
== END 2025-06-30 23:59 ==
LOC: CR 08:00
PROVIDERS: PCP Nurse Practitioner Family
DX: Z00.00 Encounter for general adult medical examination without abnormal findings (principal)